=== PATIENT | female | born 1945 | race Caucasian/White ===

== ENCOUNTER 2025-04-16 07:16 | Inpatient (IN) | payer MEDICARE, OTHER, SELFPAY ==
[2025-04-14] VITALS (9 sets, daily range): BP systolic 143–172; BP diastolic 76–96; BMI 22.9; BMI 21.1
[2025-04-14 13:23] LABS: % Basophils 0.3 % (0-2); % Eosinophils 0.2 % (0-6); % Immature Granulocytes 0.2 % (0-0.5); % Lymphocytes 17.6 % (20.5-51.1); % Monocytes 7.4 % (1.7-9.3); % Neutrophils 74.3 % (42.2-75.2); Absolute Lymphocytes 1.6 10^3/uL (1.2-3.4); Absolute Monocytes 0.7 10^3/uL (0.1-0.6); Absolute Neutrophils 6.9 10^3/uL (1.4-6.5); Hematocrit 32.2 % (37.0-47.0); Mean Corp Hgb Conc. 31.1 g/dL (33.0-37.0); Mean Corpuscular Hgb 24.8 pg (27.0-31.0); Mean Corpuscular Volume 79.7 fL (81.0-99.0); Mean Platelet Volume 9.9 fL (7.4-10.4); Nucleated Red Blood Cells % 0 %; Platelet Count 325 10^3/uL (130-400); Red Blood Cell Count 4.04 10^6/uL (4.20-5.40); Red Cell Dist. Width 17.2 % (11.5-14.5); White Blood Cell Count 9.3 10^3/uL (4.8-10.8)
[2025-04-14 13:39] LABS: ALT (SGPT) 17 U/L (0-35); AST (SGOT) 18 U/L (14-36); Albumin 3.8 g/dl (3.5-5.0); Alkaline Phosphatase 81 U/L (38-126); Blood Urea Nitrogen 8 mg/dl (7-17); Calcium 9.8 mg/dl (8.4-10.2); Carbon Dioxide 26 mmol/L (22-30); Chloride 103 mmol/L (98-107); Glucose 119 mg/dl (70-99); Lipase 97 U/L (23-300); Potassium 3.6 mmol/L (3.5-5.1); Sodium 138 mmol/L (135-145); Total Bilirubin 0.6 mg/dl (0.2-1.3); Total Protein 7.2 g/dl (6.3-8.2); eGFR > 60.00
[2025-04-14 16:12] LABS: Urine Albumin 2+ (Neg - Trace); Urine Bilirubin Negative (Negative); Urine Character Clear (Clear); Urine Color Yellow; Urine Glucose Negative (Negative); Urine Ketone 1+ (Negative); Urine Leukocyte Negative (Negative); Urine Nitrite Negative (Negative); Urine Occult Blood 3+ (Negative); Urine Urobilinogen Negative (Neg - 1+); Urine pH 6.5 (5.0-9.0)
[2025-04-14] MEDS: NSS 500 IV (16:37)
[2025-04-14] MEDS: TORADOL 15 MG IV (16:38)
[2025-04-14 16:44] LABS: Urine Bacteria Few (Negative); Urine Granular Cast 0-2 /LPF (0); Urine Hyaline Cast 0-2 /LPF (0-2)
[2025-04-14] MEDS: OMNIPAQUE 50 ML PO (17:42)
--- NOTE | 2025-04-14 18:33 | ED.GENMED ---
History of Present Illness
<Billy Phillips MD - Last Filed: 04/14/25 18:36>
General
Chief Complaint: Fatigue
Source: patient and family
Exam Limitations: none
Time Seen by Provider: 04/14/25 14:25
Nursing documentation reviewed up to this point in time: agreed with
History of Present Illness
History of Present Illness:
Patient presents to ED secondary to worsening abdominal pain and back pain over the past 3 months. Denies fever or chills. Denies vomiting or diarrhea. Patient has had significant decreased appetite with weight loss. Patient has been evaluated
multiple times by her primary care physician. Patient has had CT scan that showed possible kidney stone, and has been seen by urologist. Recently, secondary to continued pain, patient went on the lithotripsy, without improving symptoms. Patient
was seen by her urologist who informed her that he does not believe that her pain is secondary to kidney stones. Recommended GI follow-up as an outpatient. However, when she attempted to make an appointment to see a GI physician, earliest
appointment was in July.
Review of Systems
<Billy Phillips MD - Last Filed: 04/14/25 18:36>
Review of Systems
Allergies reviewed?: Yes
All Other Systems: ROS reviewed and negative except as documented in HPI and ROS
Constitutional: Reports no symptoms; Denies fever
Respiratory: Reports no symptoms
Cardiac: Reports no symptoms
ABD/GI: Reports abdominal pain and nausea
Musculoskeletal: Reports no symptoms
Skin: Reports no symptoms
Neurological: Reports no symptoms
Phy Exam
<Billy Phillips MD - Last Filed: 04/14/25 18:36>
Physical Exam
Physical Exam:
Physical Exam
General: no apparent distress, not acutely ill. afebrile
Head: nc/at. eomi
Neck: supple. normal range of motion.
Heart: s1/s2 regular rate and rhythm
Lungs: no acute respiratory distress. clear bilaterally
Abdomen: normal bowel sounds. mild lower abdominal tenderness to palpation. no distention
Neuro: alert and oriented x 3. no focal neurological deficits
Skin: no rash
Psychiatric: well kept. interactive and cooperative
Extremities: no edema. no calf tenderness.
Course
<Billy Phillips MD - Last Filed: 04/14/25 18:36>
Orders/Labs/Results
Orders:
Orders
04/14/25 13:11
Complete Blood Count/With Diff Urgent
Comprehensive Metabolic Panel Urgent
Lipase Urgent
04/14/25 15:40
Urinalysis Reflex To Culture Urgent
Date Specimen was Collected: 04/14/25
Time Specimen was Collected: 15:35
Urine Microscopic Reflex Cult Urgent
04/14/25 16:09
0.9% Sodium Chloride 500 ml [Nss] 500 ml IV BOLUS
Ketorolac [Toradol] 15 mg IV NOW STA
Pantoprazole [Protonix IV] 40 mg IV NOW STA
04/14/25 17:16
CT Abd/pel W Iv And Oral Contr Urgent
Comment:
Reason For Exam: abdominal pain
Iohexol [Omnipaque] See Protocol PO NOW STA
Abnormal Lab Results
04/14/25 04/14/25
13:11 15:40
RBC 4.04 L 10^6/uL
(4.20-5.40)
Hgb 10.0 L g/dL
(12.0-16.0)
Hct 32.2 L %
(37.0-47.0)
MCV 79.7 L fL
(81.0-99.0)
MCH 24.8 L pg
(27.0-31.0)
MCHC 31.1 L g/dL
(33.0-37.0)
RDW 17.2 H %
(11.5-14.5)
Absolute Neuts (auto) 6.9 H 10^3/uL
(1.4-6.5)
Absolute Monos (auto) 0.7 H 10^3/uL
(0.1-0.6)
Lymphocytes % 17.6 L %
(20.5-51.1)
Creatinine 0.5 L mg/dL
(0.6-1.0)
Glucose 119 H mg/dl
(70-99)
Urine Ketones 1+ A
(Negative)
Ur Occult Blood Reflex 3+ A
(Negative)
Urine RBC 11-15 A /HPF
(0-2)
Urine Bacteria (Reflex) Few A
(Negative)
Urine Albumin (Reflex) 2+ A
(Neg - Trace)
04/14/25 13:11
04/14/25 13:11
Vital Signs
Initial and Last Documented VS:
Initial Vital Signs
Temp Pulse Resp BP Pulse Ox
97.9 F 92 20 153/89 99
04/14/25 12:55 04/14/25 12:55 04/14/25 12:55 04/14/25 12:55 04/14/25 12:55
Last Documented Vital Signs
Temp Pulse Resp BP Pulse Ox
98.0 F 93 17 172/95 100
04/14/25 19:54 04/14/25 19:30 04/14/25 19:30 04/14/25 19:00 04/14/25 19:30
<Terrance Hernandez, DO - Last Filed: 04/14/25 21:04>
Orders/Labs/Results
Orders:
Orders
04/14/25 13:11
Complete Blood Count/With Diff Urgent
Comprehensive Metabolic Panel Urgent
Lipase Urgent
04/14/25 15:40
Urinalysis Reflex To Culture Urgent
Date Specimen was Collected: 04/14/25
Time Specimen was Collected: 15:35
Urine Microscopic Reflex Cult Urgent
04/14/25 16:09
0.9% Sodium Chloride 500 ml [Nss] 500 ml IV BOLUS
Ketorolac [Toradol] 15 mg IV NOW STA
Pantoprazole [Protonix IV] 40 mg IV NOW STA
04/14/25 17:16
CT Abd/pel W Iv And Oral Contr Urgent
Comment:
Reason For Exam: abdominal pain
Iohexol [Omnipaque] See Protocol PO NOW STA
Abnormal Lab Results
04/14/25 04/14/25
13:11 15:40
RBC 4.04 L 10^6/uL
(4.20-5.40)
Hgb 10.0 L g/dL
(12.0-16.0)
Hct 32.2 L %
(37.0-47.0)
MCV 79.7 L fL
(81.0-99.0)
MCH 24.8 L pg
(27.0-31.0)
MCHC 31.1 L g/dL
(33.0-37.0)
RDW 17.2 H %
(11.5-14.5)
Absolute Neuts (auto) 6.9 H 10^3/uL
(1.4-6.5)
Absolute Monos (auto) 0.7 H 10^3/uL
(0.1-0.6)
Lymphocytes % 17.6 L %
(20.5-51.1)
Creatinine 0.5 L mg/dL
(0.6-1.0)
Glucose 119 H mg/dl
(70-99)
Urine Ketones 1+ A
(Negative)
Ur Occult Blood Reflex 3+ A
(Negative)
Urine RBC 11-15 A /HPF
(0-2)
Urine Bacteria (Reflex) Few A
(Negative)
Urine Albumin (Reflex) 2+ A
(Neg - Trace)
04/14/25 13:11
04/14/25 13:11
Vital Signs
Initial and Last Documented VS:
Initial Vital Signs
Temp Pulse Resp BP Pulse Ox
97.9 F 92 20 153/89 99
04/14/25 12:55 04/14/25 12:55 04/14/25 12:55 04/14/25 12:55 04/14/25 12:55
Last Documented Vital Signs
Temp Pulse Resp BP Pulse Ox
98.0 F 93 17 172/95 100
04/14/25 19:54 04/14/25 19:30 04/14/25 19:30 04/14/25 19:00 04/14/25 19:30
<Terrance Hernandez DO - Last Filed: 04/14/25 21:04>
*Critical Care Note
Total Time (30-74mins, 75-104mins- exclusive of procedures): Not Applicable
<Terrance Hernandez DO - Last Filed: 04/14/25 21:04>
Update Note
Update Note:
9 PM care of patient was transitioned earlier pending CT. Patient has been having abdominal pain and back pain and weight loss. She is having trouble eating. CT shows concern for thoracic discitis and possibly osteomyelitis. Will admit for
further evaluation and workup
ED Attending Note
<Billy Phillips MD - Last Filed: 04/14/25 18:36>
-
Portions of this chart may have been created with voice recognition software.� Occasional wrong word or��sound alike� substitutions may have occurred due to the inherent limitations of voice recognition software.
Discharge Plan
Departure
Patient Disposition: Admit
Date of Disposition: 04/14/25
Time of Disposition: 21:03
Admit to: Med/Surg
Presentation/result/management discussed w/ accepting MD/DO: Hospitalist
Discharge Problem:
Back pain, Recent weight loss
Prescriptions:
No Action
losartan 50 mg Tablet
50 mg PO DAILY
metoprolol succinate [Toprol XL] 25 mg Tablet Extended Release 24 Hr
25 mg PO DAILY
rosuvastatin [Crestor] 20 mg Tablet
20 mg PO QPM
acetaminophen [Tylenol] 325 mg Tablet
650 mg PO Q6HPRN PRN (Reason: mild pain)
aspirin 81 mg Tablet,Delayed Release (Dr/Ec)
81 mg PO QPM
Referrals:
Harinder Kee MD [Family Provider] -
Interventions
Interventions:
*Risk Screen - Suicide Last Done: 04/14/25 12:55
*General Assessment Last Done: 04/14/25 12:55
*Neglect/Abuse Screening Last Done: 04/14/25 12:55
*ED- Fall Risk Assessment Last Done: 04/14/25 14:34
*ED COVID-19 Vaccine History Last Done: 04/14/25 14:34
Discharge Date and Time
Print Language: ARGENTINE
--- NOTE | 2025-04-14 21:25 | HPS.HSE ---
Family Physician
-
Family Physician: Harinder Kee
Chief Complaint
-
Abdominal pain and back pain
History of Present Illness
This is a 80-year-old female who has past medical history significant for hypertension and hyperlipidemia presenting to the emergency department with 3-month history of abdominal pain and back pain.
Patient reports progressive onset of symptoms over the last 3 months with significantly decreased appetite and weight loss. She denies nausea vomiting or diarrhea. She denies abdominal distention. She denies black stools. She denies any
hematochezia. She denies any urinary symptoms. She has not had any night sweats and denies any recent travels or sick contacts.
She had been admitted at [facility] several weeks ago with urinary tract infection given antibiotics which she poorly tolerated. She and since then she is continue to have abdominal and back pain.
Patient was seen by urologist for kidney stones and underwent lithotripsy without improvement in symptoms. The urologist explained this to the patient that he does not believe that pain is secondary to kidney stones. She has not been followed by
GI as an outpatient yet. She has been seen by hematology and is pending GI evaluation for continued poor appetite and weight loss.
Patient denies any food fear or pain with attempted eating. She denies dysphagia or odynophagia dyspepsia, melena or hematochezia. No recent colonoscopy.
In the emergency department she was afebrile, blood pressure 170/70 pulse rate of 90 and she was satting 98% on room air.
Electrolyte BUN/creatinine were within normal limits. CBC was unremarkable.
CT of the abdomen pelvis showing severe disc space narrowing and osseous irregularity/destructive changes centered at T11-T12. Paravertebral inflammatory soft tissue also noted at T11-T12. CT findings may be secondary to the sequela of a severe
neuropathic arthrosis versus discitis-osteomyelitis. 0.8 cm lytic lesion in the posterior T11 vertebral body of uncertain etiology.
Medical History
Past Medical History
Past Medical History: Reports HTN, Hypercholesterolemia and Other (Nephrolithiasis)
Additional Past Medical History:
Hypertension
Hyperlipidemia
Past Surgical History: Reports Other
Social History
Tobacco: Non-smoker
Alcohol: None
Drug: None
Family History
Family History: Not pertinent
Allergies / Home Medications
Allergies reflects when Allergies were last updated in [facility].
Home Medications with original date entered in [facility]
Allergy/Medication List:
Allergies
Allergy/AdvReac Type Severity Reaction Status Date / Time
No Known Allergies Allergy Verified 04/14/25 12:59
Home Medications
acetaminophen 325 mg tablet (Tylenol) 650 mg PO Q6HPRN PRN mild pain 04/14/25
aspirin 81 mg tablet,delayed release 81 mg PO QPM 04/14/25
losartan 50 mg tablet 50 mg PO DAILY 04/14/25
metoprolol succinate 25 mg tablet,extended release 24 hr (Toprol XL) 25 mg PO DAILY 04/14/25
rosuvastatin 20 mg tablet (Crestor) 20 mg PO QPM 04/14/25
Review of Systems
-
Constitutional: Reports Weight Loss
EENT: Reports No Symptoms
Respiratory: Reports No Symptoms
Cardiac: Reports No Symptoms
Abdomen/GI: Reports Abdominal Pain
: Reports No Symptoms
Musculoskeletal: Reports No Symptoms
Skin: Reports No Symptoms
Neurological: Reports No Symptoms
Endocrine: Reports No Symptoms
Hematologic/Lymphatic: Reports No Symptoms
Psych: Reports No Symptoms
Physical Exam
Vital Signs
Vital Signs
Temp Pulse Resp BP Pulse Ox
98.0 F 93 17 172/95 100
04/14/25 19:54 04/14/25 19:30 04/14/25 19:30 04/14/25 19:00 04/14/25 19:30
Physical Exam
General: Well Developed, Well Nourished, No Apparent Distress and Poor Appetite
HEENT: NormoCephalic, Moist mucous membranes and Atraumatic
Respiratory: Clear
Cardiac: S1/S2 and Regular Rhythm; No Murmur or Rub
GI: Soft, Non Tender, Non Distended and Normal Bowel Sounds; No Organomegaly
Rectal: Deferred by Provider
Musculoskeletal: No Clubbing, No Cyanosis and No Edema
Skin: No Rash
Neuro: Nonfocal/grossly intact
Laboratory Results
-
04/14/25 13:11
04/14/25 13:11
Laboratory Results
Total Bilirubin 0.6 mg/dl (0.2-1.3) 04/14/25 13:11
AST 18 U/L (14-36) 04/14/25 13:11
ALT 17 U/L (0-35) 04/14/25 13:11
Alkaline Phosphatase 81 U/L (38-126) 04/14/25 13:11
Lipase 97 U/L (23-300) 04/14/25 13:11
Data Reviewed
-
CT Scan: Report Reviewed by me
Lab Data: Labs Reviewed by me
Old Records: Reviewed
Impression/Plan
-
IMPRESSION:
80-year-old with subacute back pain as well as abdominal pain and poor appetite. She has weight loss and suffering some failure to thrive. It appears that her low appetite and loss of weight is secondary to the back pain that has been persistent
for several weeks. She has no acute abdominal symptoms per se. She has no evidence of blood loss. She has no prior history of cancer but has no recent screening. Family came in for more GI evaluation but imaging shows an incidental finding of
irregularity and destructive changes of the vertebral bone centered around T11-T12 with paravertebral inflammatory soft tissue findings. There is no specific tenderness on examination. There is concern however for superolateral severe neuropathic
arthrosis versus discitis/osteomyelitis.
PLAN:
1. Back pain
- admit to med/surg observation
- possible disciitis/vertebral osteo, mri with mark in am
- check esr/crp
- pain control and antiemetics
- will get ID if confirmed osteo and obtain blood cultures and possible echo
2. GI/weightloss - no acute findings in the abdomen to explain a GI pathology
- pain control as above
- consider GI consultation if negative mri
- agree with outpatient gi f/u
continue antihypertensives
DVT PPx - heparin sq
Code Status - Full code
[2025-04-15] MEDS: NSS 1000 IV (00:15)
[2025-04-15] MEDS: HEPARIN 5000 UNITS SC ×3 (00:15→16:42)
[2025-04-15 07:16] LABS: % Basophils 0.6 % (0-2); % Eosinophils 1.5 % (0-6); % Immature Granulocytes 0.2 % (0-0.5); % Lymphocytes 25.6 % (20.5-51.1); % Neutrophils 62.1 % (42.2-75.2); Absolute Eosinophils 0.1 10^3/uL (0-0.7); Absolute Lymphocytes 1.4 10^3/uL (1.2-3.4); Absolute Monocytes 0.5 10^3/uL (0.1-0.6); Absolute Neutrophils 3.4 10^3/uL (1.4-6.5); Hematocrit 29.9 % (37.0-47.0); Hemoglobin 9.4 g/dL (12.0-16.0); Mean Corp Hgb Conc. 31.4 g/dL (33.0-37.0); Mean Corpuscular Hgb 24.8 pg (27.0-31.0); Mean Corpuscular Volume 78.9 fL (81.0-99.0); Mean Platelet Volume 9.8 fL (7.4-10.4); Nucleated Red Blood Cells % 0 %; Platelet Count 290 10^3/uL (130-400); Red Blood Cell Count 3.79 10^6/uL (4.20-5.40); Red Cell Dist. Width 17.2 % (11.5-14.5); White Blood Cell Count 5.4 10^3/uL (4.8-10.8)
--- NOTE | 2025-04-15 07:33 | PTCARENOTE ---
Patient arrived on unit approximately 2340 via stretcher from ED. Patient AAOX3, ambulate to bed with assist x1. Patient refuse any pain med stating pain is 'ok' when she is in bed, therefore tolerable. Skin assessment completed, med rec completed,
oriented to unit, call natarajan within reach.
[2025-04-15 07:34] VITALS: BP 162/92
[2025-04-15 08:02] LABS: Erythrocyte Sed Rate 81 mm/hour (0-20)
[2025-04-15] MEDS: COZAAR 50 MG PO (08:13)
[2025-04-15] MEDS: TOPROL XL 25 MG PO (08:14)
[2025-04-15 08:22] LABS: Blood Urea Nitrogen 8 mg/dl (7-17); Carbon Dioxide 26 mmol/L (22-30); Chloride 109 mmol/L (98-107); Estimated Creatinine Clearance 60 ml/min; Glucose 94 mg/dl (70-99); Iron 36 ug/dl (37-170); Potassium 3.3 mmol/L (3.5-5.1); Sodium 140 mmol/L (135-145); eGFR > 60.00
[2025-04-15 08:30] LABS: Percent Saturation 14 % (20-50); Total Iron Binding Capacity 248 ug/dl (265-497)
--- NOTE | 2025-04-15 08:39 | W.PN.HOSP.TC ---
Today's Communication/Plan
-
see PN
Assessment / Plan
Assessment / Plan
80yo F with PMHX of HTN, CAD, HLD, nephrolithasis s/p laser lythotripsy 2 weeks ago, came with c/o continued pain in the middle of her spine started appr 1 monht ago. Pain is significant especially when she is trying to get her clothes on. She
initially though that it was 2/2 kidney stone, but her recent lythoripsy did not bring ny relief. CT in ED showed changes in the thoracic sline
A/P:
#Severe disc space narrowing and osseous irregularity/destructive changes centered at T11-T12.
# 0.8 cm lytic lesion in the posterior T11 vertebral body of uncertain etiology.
Paravertebral inflammatory soft tissue also noted at T11-T12. CT findings may be secondary to the sequela of a severe neuropathic arthrosis versus discitis-osteomyelitis. As discussed with NeuroSx - advised Cx and hold off Abx until collected.
MRI thoracic
Bcx
IRAD for vertebral biopsy for Cx and lesion
#Weight loss with lack of appetite
since january [address] abd/pelvis without acute finsings
will need age-appropriate CA screening by PCP
complete w/u with chest XR
No abdominal or retroperitoneal lymphadenopathy.
4.4 cm simple appearing cystic lesion of the right adnexa.
#hypokalemia
Most likely 2/2 poor oral intake
encourage PO intake
replete and follow
check Mg
#Anemia, microcytis
check iron, TIBC, ferritin
#ASCVD
#HLD
#GERD
cont home meds
DVT ppx hep
Full code
I have spent at least 57min reviewing chart, test results, communication with consultants and providing direct patient care
Anticipated Discharge: > 48 hours
Subjective/Interval History
-
Date of Service: April 15, 2025
Objective Data
-
Labs:
Laboratory Results
04/15/25
06:31
WBC 5.4
Hgb 9.4 L
Hct 29.9 L
Plt Count 290
Sodium 140
Potassium 3.3 L
Chloride 109 H
Carbon Dioxide 26
BUN 8
Creatinine 0.4 L
Glucose 94
Calcium 9.0
Vital Signs:
Vital Signs
Temp Pulse Resp BP Pulse Ox
98 F 95 14 162/92 100
04/15/25 07:34 04/15/25 08:14 04/15/25 07:34 04/15/25 08:14 04/15/25 07:34
I&O
04/14/25 04/15/25 04/16/25
06:59 06:59 06:59
Intake Total 480 / 480 450 / 450
Balance 480 / 480 450 / 450
Review of Systems
-
History Source: Patient
All other systems: Reviewed and negative
Constitutional: Reports Weight Loss; Denies Fever
Musculoskeletal: Reports Other (mid-back pain)
Physical Exam
-
General: No Apparent Distress
HEENT: Normocephalic
Respiratory: Clear to Auscultation
Cardiac: Regular Rhythm
Musculoskeletal: Other (painful lump over thoracic spine)
Neuro: Awake, Alert, Oriented and AO x 3
Psych: Calm
[2025-04-15 08:41] LABS: TSH 1.63 uIU/ml (0.47-4.68)
[2025-04-15 09:00] LABS: Vitamin B12 520 pg/ml (239-931)
[2025-04-15] MEDS: KCL 40 MEQ PO (09:53)
[2025-04-15 10:21] LABS: Magnesium 2.1 mg/dl (1.6-2.3)
--- NOTE | 2025-04-15 12:50 | CM ---
Patient seen at bedside
IA completed
OBS status-GAMBOA Form explained & signed. In chart
DX: back pain
MR thoracic spine ordered
Patient lives with spouse on 1st floor apartment
PLOF: independent with walker
DME: Walker
Denies VN/Rehab
Denies insecurities
PCP: Harinder Kee
Pharmacy: [facility]
PLAN: Home, currently no needs, when stable, CM continue to follow
[2025-04-15] MEDS: TYLENOL 650 MG PO ×2 (15:42→21:56)
[2025-04-15 15:53] VITALS: BP 125/79
--- NOTE | 2025-04-15 16:03 | DOWNTIME ---
There was a [email or web address] Downtime on 04/15/2025 from 1230 to 04/15/2025 at 1550. Downtime documentation of patient's care, including medication administrations, has been reconciled in the electronic record per guidelines. Refer to the
patient's paper chart under the miscellaneous tab to see printed paper medication records and downtime forms.
[2025-04-15 16:06] VITALS: BMI 21.1
[2025-04-15] MEDS: ASPIR LOW (ENTERIC COATED) 81 MG PO (16:42)
[2025-04-15] MEDS: CRESTOR 20 MG PO (16:42)
--- NOTE | 2025-04-15 20:21 | CON.NS ---
Consultation
-
Date/Time Consultation Performed: 04/15/2025; 15:00
Performing Provider: Trinidad
Chief Complaint
History of Present Illness
This is a 80-year-old female who presents last evening with 3 month hx of back pain and abdominal pain. Denies any trauma prior to start of back pain. She was brought in for loss of appetite and failure to thrive. Of note, she was admitted to [facility] approximately 3-4 weeks prior with urosepsis and was on antibiotics for approximately 2 weeks according to daughter, who provides additional hx by telephone.
Denies any fevers, or chills.
CT performed in the ED demonstrates lytic process at T11-12.
Patient denies any numbness, pain in legs. Daughter and patient reports she has been using walker but primarily due to back pain.
Denies any bowel and bladder changes.
Review of Systems
-
10 point ROS including constitutional, ENT, CV, Respiratory, GI, , neurological, hematological, endocrinological, musculoskeletal was negative except for as stated in HPI.
Medication and Allergies
Home Medications
Home Medications
�Medication �Instructions �Recorded
acetaminophen 325 mg tablet 650 mg PO Q6HPRN PRN mild pain 04/14/25
(Tylenol)
aspirin 81 mg tablet,delayed 81 mg PO QPM Blood Clot 04/14/25
release Prevention/Tx
losartan 50 mg tablet 50 mg PO DAILY Blood Pressure 04/14/25
metoprolol succinate 25 mg 25 mg PO DAILY Blood Pressure 04/14/25
tablet,extended release 24 hr
(Toprol XL)
rosuvastatin 20 mg tablet (Crestor) 20 mg PO QPM High Cholesterol 04/14/25
Allergies
Allergies
Allergy/AdvReac Type Severity Reaction Status Date / Time
No Known Allergies Allergy Verified 04/14/25 12:59
Physical Exam
-
Exam:
awake, alert, NAD
CN 2-12 grossly intact.
5/5 strength in bilateral arms and legs.
sensation to LT intact in arms and legs.
Head: NC/AT
neck supple
breathing nonlabored.
abdomen soft.
Cardiac: regular rate
Extremities: warm
CT: abdomen pelvis demonstrates lytic process at T11-12 involving intervening disc space, with focal kyphosis and retropulsion at this level.
Problems
-
Problem Status Onset Code
Recent weight loss Acute R63.4
Back pain Acute M54.9
Assessment / Plan
-
80 yo F with several month hx of back pain. REcent diagnosis and treatment of urosepsis. IMaging suspicious for osteomyelitis/discitis. Neuro intact. elevated CRP.
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
HOld abx until cultures obtained.
IR consult for possible bx of area.
TLSO brace when upright, weight bearing.
[2025-04-15 23:35] VITALS: BP 138/87
[2025-04-16] MEDS: HEPARIN 5000 UNITS SC ×4 (00:50→23:39)
[2025-04-16 06:43] LABS: % Basophils 0.8 % (0-2); % Eosinophils 2.1 % (0-6); % Immature Granulocytes 0.4 % (0-0.5); % Lymphocytes 27.9 % (20.5-51.1); % Monocytes 8.2 % (1.7-9.3); % Neutrophils 60.6 % (42.2-75.2); Absolute Eosinophils 0.1 10^3/uL (0-0.7); Absolute Lymphocytes 1.5 10^3/uL (1.2-3.4); Absolute Monocytes 0.4 10^3/uL (0.1-0.6); Absolute Neutrophils 3.2 10^3/uL (1.4-6.5); Hematocrit 31.1 % (37.0-47.0); Hemoglobin 9.6 g/dL (12.0-16.0); Mean Corp Hgb Conc. 30.9 g/dL (33.0-37.0); Mean Corpuscular Hgb 24.6 pg (27.0-31.0); Mean Corpuscular Volume 79.5 fL (81.0-99.0); Mean Platelet Volume 9.6 fL (7.4-10.4); Nucleated Red Blood Cells % 0 %; Platelet Count 286 10^3/uL (130-400); Red Blood Cell Count 3.91 10^6/uL (4.20-5.40); Red Cell Dist. Width 17.4 % (11.5-14.5); White Blood Cell Count 5.2 10^3/uL (4.8-10.8)
[2025-04-16 07:07] LABS: ALT (SGPT) 15 U/L (0-35); AST (SGOT) 16 U/L (14-36); Albumin 3.2 g/dl (3.5-5.0); Alkaline Phosphatase 64 U/L (38-126); Blood Urea Nitrogen 11 mg/dl (7-17); Calcium 9.3 mg/dl (8.4-10.2); Carbon Dioxide 29 mmol/L (22-30); Chloride 108 mmol/L (98-107); Estimated Creatinine Clearance 60 ml/min; Glucose 107 mg/dl (70-99); Magnesium 2.1 mg/dl (1.6-2.3); Potassium 3.6 mmol/L (3.5-5.1); Sodium 140 mmol/L (135-145); Total Bilirubin 0.4 mg/dl (0.2-1.3); Total Protein 6.2 g/dl (6.3-8.2); eGFR > 60.00
[2025-04-16 07:34] VITALS: BP 146/83
[2025-04-16] MEDS: TYLENOL 650 MG PO ×2 (10:00→16:29)
[2025-04-16] MEDS: COZAAR 50 MG PO (10:01)
[2025-04-16] MEDS: TOPROL XL 25 MG PO (10:01)
--- NOTE | 2025-04-16 11:01 | CON.ID ---
Consultation
-
Date/Time Consultation Requested: April 16, 2025 0900
Date/Time Consultation Performed: April 16, 2025 1100
Requesting Provider: Dr. Dl Presley
Performing Provider: Dr. Sandra Morris
Reason for Consultation: Vertebral osteomyelitis
Chief Complaint / Past History
Chief Complaint
Back pain, poor appetite
History of Present Illness
80-year-old female with history of hypertension, nephrolithiasis, kyphosis who presented to the hospital on April 14 due to worsening mid back pain. Patient states that she started feeling unwell approximately in December with progressive poor
appetite, weight loss, and weakness. No fevers or chills. She then developed left lower quadrant abdominal pain and she was admitted to [facility] on January 21, 2025. She states you she was diagnosed with a UTI which was treated with an
antibiotic she cannot remember. She continued to have the left lower quadrant abdominal pain. She was readmitted to [facility] on February 01 for bacteremia. She reports CT of the abdomen pelvis was unremarkable. She was in the hospital
for 5 days receiving IV antibiotic then discharged on 10-day course of oral antibiotic. Again she does not know what bacteria was in her blood or the antibiotic she was treated with. The left lower quad abdominal pain then moved to her back on the
left side. She saw the urologist who performed lithotripsy. However back pain persisted and got worse. She was told that her pain was not due to kidney stones. She continued to feel poorly. She has difficulty walking. She therefore came to
[facility]. Blood cultures x 2 negative to date. MRI of the thoracic and lumbar spine showed T10-T12 discitis/osteomyelitis with phlegmon anterior epidural space. Sed rate 81, CRP 64. she is currently not on antibiotic. Denies trauma to
the back.
Past History
Additional Past Medical History:
Hypertension
HLD
Nephrolithiasis
Bladder lift 2021
Allergy History:
No Known Allergies Allergy (Verified 04/14/25 12:59)
Medications Reviewed: Yes
Current Antibiotics:
None
Social History
Tobacco: Non-Smoker
Alcohol: None
Drug: None
Personal:
Family History
Family History: Not Pertinent
Review of Systems
Review of Systems
General: Change in Appetite; Negative Fever or Chills
HEENT: Negative Sinus Problems or Pharyngitis
Cardiovascular: Negative Chest Pain or Dyspnea
Respiratory: Negative Dyspnea or Cough
Gasteroenterology: Negative Nausea, Vomiting or Diarrhea
Genital / Urological: Negative Dysuria
Endocrine: Weakness and Fatigue
Skin / Hair / Nails: Negative Rash
Neurological: Negative Dizziness
All systems: All other systems were reviewed and were negative
Vital Signs
Temp Pulse Resp BP Pulse Ox
98.1 F 84 16 146/83 100
04/16/25 07:34 04/16/25 10:01 04/16/25 07:34 04/16/25 10:01 04/16/25 07:34
Physical Exam
Physical Exam
Constitutional: Non-toxic
Head: Other (No frontal or max or sinus tenderness)
Eyes: No Conjunctival Hemorrhage and Sclera Anicteric
Cardiovascular: Regular Rate and S1/S2
Pulmonary: Clear
Gastrointestinal: Soft, Non Tender, Non Distended and Normal Bowel Sounds
Extremities: Negative Edema
Musculoskeletal: Spinal Tenderness (Lower thorax)
Neurological: AO x 3 and Normal Muscle Strength (all four extremities); Negative Meningeal Signs
Lab / Diagnostic Study Results
04/16/25 06:15
04/16/25 06:15
Abs Immat Gran (auto) 0.0 10^3/uL (0-0.05) 04/16/25 06:15
Absolute Neuts (auto) 3.2 10^3/uL (1.4-6.5) 04/16/25 06:15
Absolute Lymphs (auto) 1.5 10^3/uL (1.2-3.4) 04/16/25 06:15
Absolute Monos (auto) 0.4 10^3/uL (0.1-0.6) 04/16/25 06:15
Absolute Basos (auto) 0.0 10^3/uL (0-0.2) 04/16/25 06:15
Immature Gran % 0.4 % (0-0.5) 04/16/25 06:15
Neutrophils % 60.6 % (42.2-75.2) 04/16/25 06:15
Lymphocytes % 27.9 % (20.5-51.1) 04/16/25 06:15
Monocytes % 8.2 % (1.7-9.3) 04/16/25 06:15
Eosinophils % 2.1 % (0-6) 04/16/25 06:15
Basophils % 0.8 % (0-2) 04/16/25 06:15
ESR 81 mm/hour (0-20) H 04/15/25 06:31
C-Reactive Protein 64.10 mg/L (0.0-10.00) H 04/15/25 06:31
Ur Squamous Epith Cells 11-15 /LPF (Few) 04/14/25 15:40
Microbiology Results
Micro:
04/15/25 09:38 Blood Culture - Preliminary
Blood/Venous No Growth in 24 hours- Final report to follow
04/15/25 08:45 Blood Culture - Preliminary
Blood/Venous No Growth in 24 hours- Final report to follow
04/14/25 CT a/p: Severe disc space narrowing and osseous irregularity/destructive changes centered at T11-T12. Paravertebral inflammatory soft tissue also noted at T11-T12. CT findings may be secondary to the sequela of a severe neuropathic arthrosis
versus discitis-osteomyelitis. 0.8 cm lytic lesion in the posterior T11 vertebral body of uncertain etiology. No prior imaging of the spine is currently available for direct comparison.
04/16/25 CXR: Pulmonary emphysema. Clear lungs. Exaggerated kyphosis of thoracic spine. Evidence for compression fractures of what likely represent T10 and T11 vertebral bodies. Thoracic spine MRI has been performed the same day and provides more
detailed evaluation.
04/16/25 MRI thoracic spine: At T10-T11 there is discitis/osteomyelitis with associated mild loss of height and increased thoracic kyphosis. There is retropulsion and phlegmonous change in the anterior epidural space with associated high-grade spinal
canal and neuroforaminal narrowing. There is some questionable faint T2 hyperintense cord signal at the T10-T11 level which may represent developing myelopathy. Additionally there is inflammatory changes in the adjacent paraspinal soft tissues.
Assessment / Plan
# T10-T12 discitis/osteomyelitis, phlegmon anterior epidural space
# Elevated ESR/CRP
# Recent history of bacteremia 02/01/25 at outside hospital.
# Recent history of UTI 01/18/25 at outside hospital.
- Obtain outside hospitalization records from [place]
- Blood cx's x 2 neg to date
- Repeat another 2 sets blood cx.
- IR to aspirate fluid for culture.
- Hold antibiotic for now to increase biopsy yield.
Care Review
Plan reviewed with: Physician (Dr. Presley)
--- NOTE | 2025-04-16 12:05 | W.PN.HOSP.TC ---
Today's Communication/Plan
-
vertebral biopsy
Assessment / Plan
Assessment / Plan
80yo F with PMHX of HTN, CAD, HLD, nephrolithiasis s/p laser lithotripsy 2 weeks ago, came with c/o continued pain in the middle of her spine started appr 1 month ago. Pain is significant especially when she is trying to get her clothes on. She
initially though that it was 2/2 kidney stone, but her recent lithotripsy did not bring ny relief. CT in ED showed changes in the thoracic spine, MRI proved vertebral OM
Patient with Hx of UTI with bacteremia in [facility] 1 month ago
A/P:
#Severe disc space narrowing and osseous irregularity/destructive changes centered at T11-T12.
# 0.8 cm lytic lesion in the posterior T11 vertebral body of uncertain etiology.
Paravertebral inflammatory soft tissue also noted at T11-T12. CT findings may be secondary to the sequela of a severe neuropathic arthrosis versus discitis-osteomyelitis. As discussed with NeuroSx - advised Cx and hold off Abx until collected.
MRI thoracic: At T10-T11 there is discitis/osteomyelitis with associated mild loss of height and increased thoracic kyphosis. There is retropulsion and phlegmonous change in the anterior epidural space with associated high-grade spinal canal and
neuroforaminal narrowing. There is some questionable faint T2 hyperintense cord signal at the T10-T11 level which may represent developing myelopathy.
As discussed with neuroSx - patient with high risk for comlicated postOP recovery 2/2 poor nutrition status, lack of subq fat at the site where Sx to be done. Since at this point neuroSx did not see any focal neuro deficit - favoring Abx with
outpatient f/u, weight gain and possible eventual intervention for vertebral stabilization
BcxNTD
IRAD for vertebral biopsy for Cx and lesion under anasthesia
ID consult
#Weight loss with lack of appetite
since january [address] abd/pelvis without acute findings
will need age-appropriate CA screening by PCP
complete w/u with chest XR
No abdominal or retroperitoneal lymphadenopathy.
4.4 cm simple appearing cystic lesion of the right adnexa.
#hypokalemia
#hypomagnesemia
Most likely 2/2 poor oral intake
encourage PO intake
replete and follow
#Anemia aof chronic disease
follow CBC
#ASCVD
#HLD
#GERD
cont home meds
DVT ppx hep
Full code
I have spent at least 57min reviewing chart, test results, communication with consultants and providing direct patient care
Anticipated Discharge: > 48 hours
Subjective/Interval History
-
Date of Service: April 16, 2025
Objective Data
-
Labs:
Laboratory Results
04/16/25
06:15
WBC 5.2
Hgb 9.6 L
Hct 31.1 L
Plt Count 286
Sodium 140
Potassium 3.6
Chloride 108 H
Carbon Dioxide 29
BUN 11
Creatinine 0.5 L
Glucose 107 H
Calcium 9.3
Total Bilirubin 0.4
AST 16
ALT 15
Alkaline Phosphatase 64
Vital Signs:
Vital Signs
Temp Pulse Resp BP Pulse Ox
98.1 F 84 16 146/83 100
04/16/25 07:34 04/16/25 10:01 04/16/25 07:34 04/16/25 10:01 04/16/25 07:34
I&O
04/15/25 04/16/25 04/17/25
06:59 06:59 06:59
Intake Total 480 / 480 2205 / 2205
Balance 480 / 480 2205 / 2205
Review of Systems
-
History Source: Patient
All other systems: Reviewed and negative
Physical Exam
-
General: No Apparent Distress and Comfortable
HEENT: Normocephalic
Respiratory: Clear to Auscultation
GI: Soft, Nontender and Nondistended
Musculoskeletal: No Clubbing, No Cyanosis and No Edema
Neuro: Awake, Alert, Oriented and AO x 3
Psych: Calm
--- NOTE | 2025-04-16 12:46 | W.PN.UPDATE ---
Update Note
Progress Note Update
- IR consulted for biopsy of T11-12 suspected discitis/osteomyelitis. Small amount of fluid within the disc space on the MR with no significant/accessible paravertebral component
- Will require transpedicular bone biopsy and will need anesthesia assistance. Uncertain when they will be available to help us.
--- NOTE | 2025-04-16 12:51 | CM ---
Chart reviewed and patient switched to inpatient , IMM given, signed and placed on chart, plan is for patient to return to home when stable.
Plan; Home no needs when stable.
[2025-04-16 15:04] VITALS: BP 137/73
[2025-04-16] MEDS: CRESTOR 20 MG PO (16:27)
[2025-04-16] MEDS: ASPIR LOW (ENTERIC COATED) 81 MG PO (16:27)
[2025-04-16 23:11] VITALS: BP 136/81
[2025-04-17] VITALS (13 sets, daily range): BP systolic 80–167; BP diastolic 66–95
[2025-04-17 06:02] LABS: % Basophils 0.7 % (0-2); % Eosinophils 1.9 % (0-6); % Immature Granulocytes 0.2 % (0-0.5); % Lymphocytes 37.9 % (20.5-51.1); % Monocytes 6.7 % (1.7-9.3); % Neutrophils 52.6 % (42.2-75.2); Absolute Eosinophils 0.1 10^3/uL (0-0.7); Absolute Lymphocytes 1.6 10^3/uL (1.2-3.4); Absolute Monocytes 0.3 10^3/uL (0.1-0.6); Absolute Neutrophils 2.3 10^3/uL (1.4-6.5); Hematocrit 29.9 % (37.0-47.0); Hemoglobin 9.5 g/dL (12.0-16.0); Mean Corp Hgb Conc. 31.8 g/dL (33.0-37.0); Mean Corpuscular Volume 78.7 fL (81.0-99.0); Mean Platelet Volume 9.5 fL (7.4-10.4); Nucleated Red Blood Cells % 0 %; Platelet Count 287 10^3/uL (130-400); Red Cell Dist. Width 17.4 % (11.5-14.5); White Blood Cell Count 4.3 10^3/uL (4.8-10.8)
--- NOTE | 2025-04-17 07:22 | W.PN.UPDATE ---
Update Note
Progress Note Update
MRI reviewed and findings discussed with hospital medicine.
IMaging most consistent with osteomyelitis,discitis.
Patient with no focal neurological deficits on my exam.
Recent admission and treatment for reported urosepsis.
REcommend optimizing nutritional status.
TLSO brace with weightbearing.
Close neurological monitoring.
IR biopsy of area for culture.
ABx per ID.
Follow up in office in 4 weeks with repeat ESR/CRP, MRI thoracic with and without real estate administrative assistant.
If new neurological symptoms/deficits, call back neurosurgery.
[2025-04-17] MEDS: TOPROL XL 25 MG PO (07:53)
[2025-04-17] MEDS: COZAAR 50 MG PO (07:54)
[2025-04-17] MEDS: HEPARIN 5000 UNITS SC ×3 (07:54→23:33)
[2025-04-17 08:52] LABS: INR 0.89; PT 12.3 Sec (11.4-14.6)
--- NOTE | 2025-04-17 08:57 | PN.CDI ---
CDI
- -
CDI:
Physician Documentation Request
Admit Date: 04/16/25 07:16
Dear Doctor Fernandez,
Clinical Indicators:
Patient admitted with back pain.
04/15 PN, 'Weight loss with lack of appetite'
04/15 RD note/assessment, 'With weight loss of > 10% in 6 months and < 75% estimated needs > 1 month pt meets AND/ASPEN criteria for moderate protein calorie malnutrition.'
Based on the above information and your assessment, which of the following most accurately represents the patient's nutritional status?
Moderate Protein Calorie Malnutrition
Other (please specify)
[place] Criteria ([facility] Hospitalist 2017)
2 or more criteria must be present for either
non severe or severe malnutrition
Note that the criteria differs related to the
presence of an acute or chronic illness
Acute Illness Chronic Illness
Energy Intake Non Severe: <75% for >7 days Non Severe: <75% for >1 month
Severe: <50% for >5 days Severe: <75% for >1 month
Weight Loss Non Severe: 1-2% over 1 week Non Severe: 5% over 1 month
5% over 1 month 7.5% over 3 months
7.5% over 3 months 10% over 6 months
1 year N/A 20% over 1 year
Severe: >2% over 1 week Severe: >5% over 1 month
>5% over 1 month >7.5% over 3 months
>7.5% over 3 months >10% over 6 months
1 year N/A >20% over 1 year
Body Fat Non Severe: Mild Decrease Non Severe: Mild Loss
Severe: Moderate Decrease Severe: Severe Loss
Muscle Mass Non Severe: Mild Decrease Non Severe: Mild Loss
Severe: Moderate Decrease Severe: Severe Loss
Fluid Accumulation Non Severe: Mild Accumulation Non Severe: Mild Accumulation
Severe: Moderate to severe Severe: Moderate to severe
accumulation accumulation
Reduced Ems Director Strength Non Severe: N/A Non Severe: N/A
Severe: Measurably reduced Severe: Measurably reduced
Additional criteria that can be used to Determine if Mild or Moderate Malnutrition (Merck Manual 2018)
Mild Moderate Severe
Albumin gm/dl <3.0 gm/dl <2.5 gm/dl <2.0 gm/dl
Pre Albumin mg/dl <15 gm/dl <10 mg/dl <5.0 mg/dl
BMI <18.5 <17 <16
Use of terms such as suspected, likely, concern for, or probable (associated with a specific diagnosis that is being evaluated, monitored, or treated as if it exists) are acceptable and can be coded in the inpatient setting, when documented at the
time of discharge.
Thank you,
MATT Lee RN
CDI Specialist
available via tiger text
Please use your independent medical judgment in providing your response.
[2025-04-17] MEDS: TYLENOL 650 MG PO ×2 (09:11→19:27)
--- NOTE | 2025-04-17 11:23 | W.PN.ID1 ---
Date of Service
Date of Service: April 17, 2025
Today's Communication
Await biopsy.
Assessment / Plan
# T10-T12 discitis/osteomyelitis, phlegmon anterior epidural space
# Elevated ESR/CRP
# Recent history of E. coli bacteremia (S cefazolin, T/sulfa, FQ) 02/01/25 at outside hospital. UA negative.
.02/01/25 CT a/p: no hydronephrosis, few punctate nonobstructing calculi; stable 4.8 cm unilocular cyst right adnexa
. I reviewed [facility]'s records
# Recent history of UTI 01/21/25 at outside hospital.
. UA small LE, 20-29 WBC; Ucx E. coli (pansensitive amox/xlav, cefazolin, nitrofurantoin, T/sulfa). no bcx.
. 01/21/25 CT a/p: no acute pathology
. I reviewed [facility]'s records
- Blood cx's x 2 neg to date
- Repeat 2 sets blood cx pending
- IR to aspirate fluid for culture.
- Hold antibiotic for now to increase biopsy yield.
Chief Complaint
-: Other (vertebral osteo)
Subjective / Review of Systems
Back pain stable.
Vital Signs / Physical Exam
Vital Signs
Vital Signs
Temp Pulse Resp BP Pulse Ox
98.2 F 82 16 147/88 98
04/17/25 07:24 04/17/25 07:53 04/17/25 07:24 04/17/25 07:53 04/17/25 07:24
Physical Exam
Constitutional: No Acute Distress
Cardiovascular: Regular Rate and Irregular Rate
Pulmonary: Clear
Gastrointestinal: Soft, Non Tender and Non Distended
Musculoskeletal: Spinal Tenderness (lower thorax)
Neurological: AO x 3
Objective Data
Lab Data
Lab Results
04/17/25 05:50
04/16/25 06:15
ESR 81 mm/hour (0-20) H 04/15/25 06:31
PT 12.3 Sec (11.4-14.6) 04/17/25 08:18
INR 0.89 04/17/25 08:18
Estimated Creat Clear 60 ml/min 04/16/25 06:15
Total Bilirubin 0.4 mg/dl (0.2-1.3) 04/16/25 06:15
AST 16 U/L (14-36) 04/16/25 06:15
ALT 15 U/L (0-35) 04/16/25 06:15
Alkaline Phosphatase 64 U/L (38-126) 04/16/25 06:15
C-Reactive Protein 64.10 mg/L (0.0-10.00) H 04/15/25 06:31
Most recent labs reviewed.
Micro Results:
04/15/25 09:38 Blood Culture - Preliminary
Blood/Venous No Growth in 48 hours- Final report to follow
04/15/25 08:45 Blood Culture - Preliminary
Blood/Venous No Growth in 48 hours- Final report to follow
04/16/25 15:15 Blood Culture - Pending
Blood/Venous
04/16/25 14:29 Blood Culture - Pending
Blood/Venous
04/14/25 CT a/p: Severe disc space narrowing and osseous irregularity/destructive changes centered at T11-T12. Paravertebral inflammatory soft tissue also noted at T11-T12. CT findings may be secondary to the sequela of a severe neuropathic arthrosis
versus discitis-osteomyelitis. 0.8 cm lytic lesion in the posterior T11 vertebral body of uncertain etiology. No prior imaging of the spine is currently available for direct comparison.
04/16/25 CXR: Pulmonary emphysema. Clear lungs. Exaggerated kyphosis of thoracic spine. Evidence for compression fractures of what likely represent T10 and T11 vertebral bodies. Thoracic spine MRI has been performed the same day and provides more
detailed evaluation.
04/16/25 MRI thoracic spine: At T10-T11 there is discitis/osteomyelitis with associated mild loss of height and increased thoracic kyphosis. There is retropulsion and phlegmonous change in the anterior epidural space with associated high-grade spinal
canal and neuroforaminal narrowing. There is some questionable faint T2 hyperintense cord signal at the T10-T11 level which may represent developing myelopathy. Additionally there is inflammatory changes in the adjacent paraspinal soft tissues.
--- NOTE | 2025-04-17 11:25 | W.PN.HOSP.TC ---
Today's Communication/Plan
-
pending disk and/or vertebral biopsy
Assessment / Plan
Assessment / Plan
80yo F with PMHX of HTN, CAD, HLD, nephrolithiasis s/p laser lithotripsy 2 weeks ago, came with c/o continued pain in the middle of her spine started appr 1 month ago. Pain is significant especially when she is trying to get her clothes on. She
initially though that it was 2/2 kidney stone, but her recent lithotripsy did not bring ny relief. CT in ED showed changes in the thoracic spine, MRI proved vertebral OM
Patient with Hx of UTI with bacteremia in [facility] 1 month ago
A/P:
#Severe disc space narrowing and osseous irregularity/destructive changes centered at T11-T12.
# 0.8 cm lytic lesion in the posterior T11 vertebral body of uncertain etiology.
Paravertebral inflammatory soft tissue also noted at T11-T12. CT findings may be secondary to the sequela of a severe neuropathic arthrosis versus discitis-osteomyelitis. As discussed with NeuroSx - advised Cx and hold off Abx until collected.
MRI thoracic: At T10-T11 there is discitis/osteomyelitis with associated mild loss of height and increased thoracic kyphosis. There is retropulsion and phlegmonous change in the anterior epidural space with associated high-grade spinal canal and
neuroforaminal narrowing. There is some questionable faint T2 hyperintense cord signal at the T10-T11 level which may represent developing myelopathy.
As discussed with neuroSx - patient with high risk for comlicated postOP recovery 2/2 poor nutrition status, lack of subq fat at the site where Sx to be done. Since at this point neuroSx did not see any focal neuro deficit - favoring Abx with
outpatient f/u, weight gain and possible eventual intervention for vertebral stabilization
BcxNTD
IRAD for vertebral biopsy for Cx and lesion under anasthesia
ID consult
#Weight loss with lack of appetite
since january [address] abd/pelvis without acute findings
will need age-appropriate CA screening by PCP
complete w/u with chest XR
No abdominal or retroperitoneal lymphadenopathy.
4.4 cm simple appearing cystic lesion of the right adnexa.
#hypokalemia
#hypomagnesemia
Most likely 2/2 poor oral intake
encourage PO intake
replete and follow
#Anemia aof chronic disease
follow CBC
#ASCVD
#HLD
#GERD
cont home meds
DVT ppx hep
Full code
I have spent at least 57min reviewing chart, test results, communication with consultants and providing direct patient care
Anticipated Discharge: > 48 hours
Subjective/Interval History
-
Date of Service: April 17, 2025
Objective Data
-
Labs:
Laboratory Results
04/17/25 04/17/25
05:50 08:18
WBC 4.3 L
Hgb 9.5 L
Hct 29.9 L
Plt Count 287
PT 12.3
INR 0.89
Vital Signs:
Vital Signs
Temp Pulse Resp BP Pulse Ox
98.2 F 82 16 147/88 98
04/17/25 07:24 04/17/25 07:53 04/17/25 07:24 04/17/25 07:53 04/17/25 07:24
I&O
04/16/25 04/17/25 04/18/25
06:59 06:59 06:59
Intake Total 2204 1240 / 1240
Balance 2204 1240 / 1240
Review of Systems
-
History Source: Patient
All other systems: Reviewed and negative
Constitutional: Denies Fever
Physical Exam
-
General: No Apparent Distress
HEENT: Normocephalic
Musculoskeletal: No Clubbing, No Cyanosis and No Edema
Neuro: Awake, Alert, Oriented, AO x 3, No Motor Deficits and No Sensory Deficits
Psych: Calm
--- NOTE | 2025-04-17 12:15 | PTCARENOTE ---
consent obtained by Dr Yanez using [employer] and full stack web developer #[id number]. Patient sts she understands.
--- NOTE | 2025-04-17 12:32 | PTCARENOTE ---
Spoken to by anesthesia using GLOBO shrinker #[id number]
--- NOTE | 2025-04-17 15:29 | CM ---
Patient seen at bedside with & neice
vertebral bx today-await results
PLAN: home when stable, CM following for needs
[2025-04-17] MEDS: CRESTOR 20 MG PO (17:20)
[2025-04-17] MEDS: ASPIR LOW (ENTERIC COATED) 81 MG PO (17:20)
[2025-04-17] MEDS: ANCEF 10 IV (22:39)
[2025-04-18 03:00] VITALS: BP 135/89
[2025-04-18] MEDS: ANCEF 10 IV ×3 (05:45→22:55)
[2025-04-18] MEDS: TYLENOL 650 MG PO ×2 (05:51→19:43)
[2025-04-18 06:53] LABS: % Basophils 0.5 % (0-2); % Immature Granulocytes 0.5 % (0-0.5); % Lymphocytes 23.8 % (20.5-51.1); % Monocytes 7.7 % (1.7-9.3); % Neutrophils 67.5 % (42.2-75.2); Absolute Lymphocytes 1.5 10^3/uL (1.2-3.4); Absolute Monocytes 0.5 10^3/uL (0.1-0.6); Absolute Neutrophils 4.2 10^3/uL (1.4-6.5); Hematocrit 29.9 % (37.0-47.0); Hemoglobin 9.5 g/dL (12.0-16.0); Mean Corp Hgb Conc. 31.8 g/dL (33.0-37.0); Mean Corpuscular Hgb 24.9 pg (27.0-31.0); Mean Corpuscular Volume 78.3 fL (81.0-99.0); Mean Platelet Volume 9.7 fL (7.4-10.4); Nucleated Red Blood Cells % 0 %; Platelet Count 278 10^3/uL (130-400); Red Blood Cell Count 3.82 10^6/uL (4.20-5.40); Red Cell Dist. Width 17.3 % (11.5-14.5); White Blood Cell Count 6.3 10^3/uL (4.8-10.8)
[2025-04-18 07:16] LABS: ALT (SGPT) 14 U/L (0-35); AST (SGOT) 17 U/L (14-36); Albumin 3.2 g/dl (3.5-5.0); Alkaline Phosphatase 61 U/L (38-126); Blood Urea Nitrogen 17 mg/dl (7-17); Calcium 9.2 mg/dl (8.4-10.2); Carbon Dioxide 26 mmol/L (22-30); Chloride 105 mmol/L (98-107); Estimated Creatinine Clearance 60 ml/min; Glucose 112 mg/dl (70-99); Potassium 3.9 mmol/L (3.5-5.1); Sodium 137 mmol/L (135-145); Total Bilirubin 0.3 mg/dl (0.2-1.3); eGFR > 60.00
[2025-04-18 07:47] VITALS: BP 140/84
[2025-04-18] MEDS: COZAAR 50 MG PO (08:16)
[2025-04-18] MEDS: HEPARIN 5000 UNITS SC ×3 (08:16→22:55)
[2025-04-18] MEDS: TOPROL XL 25 MG PO (08:16)
[2025-04-18 11:11] VITALS: BP 142/80
--- NOTE | 2025-04-18 12:46 | W.PN.HOSP.TC ---
Addendum entered and electronically signed by Dl Presley MD 04/18/25 13:35:
#moderate protein calorie malnutrition
Encourage PO intake
Original Note:
Today's Communication/Plan
-
on ancef now
Assessment / Plan
Assessment / Plan
80yo F with PMHX of HTN, CAD, HLD, nephrolithiasis s/p laser lithotripsy 2 weeks ago, came with c/o continued pain in the middle of her spine started appr 1 month ago. Pain is significant especially when she is trying to get her clothes on. She
initially though that it was 2/2 kidney stone, but her recent lithotripsy did not bring ny relief. CT in ED showed changes in the thoracic spine, MRI proved vertebral OM
Patient with Hx of UTI with E.coli bacteremia (cefalosporin sensitive) in [facility] 1 month ago
A/P:
#Severe disc space narrowing and osseous irregularity/destructive changes centered at T11-T12.
# 0.8 cm lytic lesion in the posterior T11 vertebral body of uncertain etiology.
Paravertebral inflammatory soft tissue also noted at T11-T12. CT findings may be secondary to the sequela of a severe neuropathic arthrosis versus discitis-osteomyelitis. As discussed with NeuroSx - advised Cx and hold off Abx until collected.
MRI thoracic: At T10-T11 there is discitis/osteomyelitis with associated mild loss of height and increased thoracic kyphosis. There is retropulsion and phlegmonous change in the anterior epidural space with associated high-grade spinal canal and
neuroforaminal narrowing. There is some questionable faint T2 hyperintense cord signal at the T10-T11 level which may represent developing myelopathy.
As discussed with neuroSx - patient with high risk for comlicated postOP recovery 2/2 poor nutrition status, lack of subq fat at the site where Sx to be done. Since at this point neuroSx did not see any focal neuro deficit - favoring Abx with
outpatient f/u, weight gain and possible eventual intervention for vertebral stabilization
BcxNTD
[facility] did vertebral biopsy for Cx and lesion under anaesthesia on 04/17/25 - pending
ID consult: started ancef as per previous bacteremia Cx - most liekly episode of UTI with bacteremia caused seeding of infection in the spine
#Weight loss with lack of appetite
since january [address] abd/pelvis without acute findings
will need age-appropriate CA screening by PCP
chest XR normal
No abdominal or retroperitoneal lymphadenopathy.
#4.4 cm simple appearing cystic lesion of the right adnexa.
no follow up advised
#hypokalemia
#hypomagnesemia
Most likely 2/2 poor oral intake
encourage PO intake
replete and follow
#Anemia of chronic disease
follow CBC
#ASCVD
#HLD
#GERD
cont home meds
DVT ppx hep
Full code
I have spent at least 37min reviewing chart, test results, communication with consultants and providing direct patient care
Anticipated Discharge: > 48 hours
Subjective/Interval History
-
Date of Service: April 18, 2025
Objective Data
-
Labs:
Laboratory Results
04/18/25
06:30
WBC 6.3
Hgb 9.5 L
Hct 29.9 L
Plt Count 278
Sodium 137
Potassium 3.9
Chloride 105
Carbon Dioxide 26
BUN 17
Creatinine 0.5 L
Glucose 112 H
Calcium 9.2
Total Bilirubin 0.3
AST 17
ALT 14
Alkaline Phosphatase 61
Vital Signs:
Vital Signs
Temp Pulse Resp BP Pulse Ox
98.9 F 89 16 142/80 98
04/18/25 11:11 04/18/25 11:11 04/18/25 11:11 04/18/25 11:11 04/18/25 11:11
I&O
04/17/25 04/18/25 04/19/25
06:59 06:59 06:59
Intake Total 1240 / 1240 740 / 740
Balance 1240 / 1240 740 / 740
Review of Systems
-
History Source: Patient
All other systems: Reviewed and negative
Neuro: Reports Other (mid back pain)
Physical Exam
-
General: No Apparent Distress
HEENT: Normocephalic
Respiratory: Clear to Auscultation
Neuro: Awake, Alert, Oriented, AO x 3 and No Motor Deficits
Psych: Calm
--- NOTE | 2025-04-18 13:26 | W.PN.ID1 ---
Date of Service
Date of Service: April 18, 2025
Today's Communication
Started empiric cefazolin while awaiting cx.
Assessment / Plan
# T10-T12 discitis/osteomyelitis, phlegmon anterior epidural space
# Elevated ESR/CRP
# Recent history of E. coli bacteremia (S cefazolin, T/sulfa, FQ) 02/01/25 at outside hospital. UA negative.
.02/01/25 CT a/p: no hydronephrosis, few punctate nonobstructing calculi; stable 4.8 cm unilocular cyst right adnexa
. I reviewed [facility]'s records
# Recent history of UTI 01/21/25 at outside hospital.
. UA small LE, 20-29 WBC; Ucx E. coli (pansensitive amox/xlav, cefazolin, nitrofurantoin, T/sulfa). no bcx.
. 01/21/25 CT a/p: no acute pathology
. I reviewed [facility]'s records
- Blood cx's x 2 neg to date (off abx)
- Repeat 2 sets blood cx pending
- 04/17/25 s/p IR biopsy (off abx)
Gram stain mod WBC, no org. CX no growth to date
Path pending
- Started empiric cefazolin 2g IV q8h.
Chief Complaint
-: Other (vertebral osteo)
Subjective / Review of Systems
Was able to ambulate without walker today.
Vital Signs / Physical Exam
Vital Signs
Vital Signs
Temp Pulse Resp BP Pulse Ox
98.9 F 89 16 142/80 98
04/18/25 11:11 04/18/25 11:11 04/18/25 11:11 04/18/25 11:11 04/18/25 11:11
Physical Exam
Constitutional: No Acute Distress
Cardiovascular: Regular Rate and S1/S2
Pulmonary: Clear
Gastrointestinal: Soft, Non Tender and Non Distended
Extremities: Negative Edema
Neurological: AO x 3
Objective Data
Lab Data
Lab Results
04/18/25 06:30
04/18/25 06:30
ESR 81 mm/hour (0-20) H 04/15/25 06:31
PT 12.3 Sec (11.4-14.6) 04/17/25 08:18
INR 0.89 04/17/25 08:18
Estimated Creat Clear 60 ml/min 04/18/25 06:30
Total Bilirubin 0.3 mg/dl (0.2-1.3) 04/18/25 06:30
AST 17 U/L (14-36) 04/18/25 06:30
ALT 14 U/L (0-35) 04/18/25 06:30
Alkaline Phosphatase 61 U/L (38-126) 04/18/25 06:30
C-Reactive Protein 64.10 mg/L (0.0-10.00) H 04/15/25 06:31
Most recent labs reviewed.
Micro Results:
04/17/25 13:35 Wound Culture - Preliminary
Bone No growth
Gram Stain - Preliminary
04/15/25 09:38 Blood Culture - Preliminary
Blood/Venous No Growth in 72 hours- Final report to follow
04/15/25 08:45 Blood Culture - Preliminary
Blood/Venous No Growth in 72 hours- Final report to follow
04/16/25 15:15 Blood Culture - Preliminary
Blood/Venous No Growth in 24 hours- Final report to follow
04/16/25 14:29 Blood Culture - Preliminary
Blood/Venous No Growth in 24 hours- Final report to follow
04/14/25 CT a/p: Severe disc space narrowing and osseous irregularity/destructive changes centered at T11-T12. Paravertebral inflammatory soft tissue also noted at T11-T12. CT findings may be secondary to the sequela of a severe neuropathic arthrosis
versus discitis-osteomyelitis. 0.8 cm lytic lesion in the posterior T11 vertebral body of uncertain etiology. No prior imaging of the spine is currently available for direct comparison.
04/16/25 CXR: Pulmonary emphysema. Clear lungs. Exaggerated kyphosis of thoracic spine. Evidence for compression fractures of what likely represent T10 and T11 vertebral bodies. Thoracic spine MRI has been performed the same day and provides more
detailed evaluation.
04/16/25 MRI thoracic spine: At T10-T11 there is discitis/osteomyelitis with associated mild loss of height and increased thoracic kyphosis. There is retropulsion and phlegmonous change in the anterior epidural space with associated high-grade spinal
canal and neuroforaminal narrowing. There is some questionable faint T2 hyperintense cord signal at the T10-T11 level which may represent developing myelopathy. Additionally there is inflammatory changes in the adjacent paraspinal soft tissues.
[2025-04-18 15:22] VITALS: BP 125/71
[2025-04-18] MEDS: VISBIOME 2 CAP PO (17:44)
[2025-04-18] MEDS: ASPIR LOW (ENTERIC COATED) 81 MG PO (17:45)
[2025-04-18] MEDS: CRESTOR 20 MG PO (17:45)
[2025-04-18 23:00] VITALS: BP 143/79
[2025-04-19] MEDS: ANCEF 10 IV ×3 (05:56→22:27)
[2025-04-19 07:34] VITALS: BP 136/75
[2025-04-19] MEDS: HEPARIN 5000 UNITS SC ×3 (07:48→23:49)
[2025-04-19] MEDS: COZAAR 50 MG PO (07:48)
[2025-04-19] MEDS: VISBIOME 2 CAP PO (07:48)
[2025-04-19] MEDS: TYLENOL 650 MG PO ×2 (07:48→17:12)
[2025-04-19] MEDS: TOPROL XL 25 MG PO (07:49)
--- NOTE | 2025-04-19 11:22 | W.PN.ID1 ---
Date of Service
Date of Service: April 19, 2025
Today's Communication
Continue cefazolin.
Assessment / Plan
# T10-T12 discitis/osteomyelitis, phlegmon anterior epidural space
# Elevated ESR/CRP
# Recent history of E. coli bacteremia (S cefazolin, T/sulfa, FQ) 02/01/25 at outside hospital. UA negative.
.02/01/25 CT a/p: no hydronephrosis, few punctate nonobstructing calculi; stable 4.8 cm unilocular cyst right adnexa
. I reviewed [facility]'s records
# Recent history of UTI 01/21/25 at outside hospital.
. UA small LE, 20-29 WBC; Ucx E. coli (pansensitive amox/xlav, cefazolin, nitrofurantoin, T/sulfa). no bcx.
. 01/21/25 CT a/p: no acute pathology
. I reviewed [facility]'s records
- Blood cx's x 2 neg to date (off abx)
- Repeat 2 sets blood cx pending
- 04/17/25 s/p IR biopsy (off abx)
Gram stain mod WBC, no org. CX no growth to date
Path pending
- Clinically responding to cefazolin.
- Continue empiric cefazolin 2g IV q8h.
-Tomorrow place PICC.
- Follow ESR/CRP in am.
Chief Complaint
-: Other (vertebral osteo)
Subjective / Review of Systems
Back pain slightly better.
Vital Signs / Physical Exam
Vital Signs
Vital Signs
Temp Pulse Resp BP Pulse Ox
98.3 F 78 14 136/75 98
04/19/25 07:34 04/19/25 07:48 04/19/25 07:34 04/19/25 07:48 04/19/25 07:34
Physical Exam
Constitutional: No Acute Distress
Cardiovascular: Regular Rate and S1/S2
Pulmonary: Clear
Gastrointestinal: Soft, Non Tender and Non Distended
Extremities: Negative Edema
Musculoskeletal: Spinal Tenderness (Decrease tenderness of lower thorax)
Neurological: AO x 3
Objective Data
Lab Data
Lab Results
04/18/25 06:30
04/18/25 06:30
ESR 81 mm/hour (0-20) H 04/15/25 06:31
PT 12.3 Sec (11.4-14.6) 04/17/25 08:18
INR 0.89 04/17/25 08:18
Estimated Creat Clear 60 ml/min 04/18/25 06:30
Total Bilirubin 0.3 mg/dl (0.2-1.3) 04/18/25 06:30
AST 17 U/L (14-36) 04/18/25 06:30
ALT 14 U/L (0-35) 04/18/25 06:30
Alkaline Phosphatase 61 U/L (38-126) 04/18/25 06:30
C-Reactive Protein 64.10 mg/L (0.0-10.00) H 04/15/25 06:31
Most recent labs reviewed.
Micro Results:
04/15/25 09:38 Blood Culture - Preliminary
Blood/Venous No Growth in 4 days- Final report to follow
04/15/25 08:45 Blood Culture - Preliminary
Blood/Venous No Growth in 4 days- Final report to follow
04/16/25 15:15 Blood Culture - Preliminary
Blood/Venous No Growth in 48 hours- Final report to follow
04/16/25 14:29 Blood Culture - Preliminary
Blood/Venous No Growth in 48 hours- Final report to follow
04/17/25 13:35 Wound Culture - Preliminary
Bone No growth
Gram Stain - Preliminary
04/14/25 CT a/p: Severe disc space narrowing and osseous irregularity/destructive changes centered at T11-T12. Paravertebral inflammatory soft tissue also noted at T11-T12. CT findings may be secondary to the sequela of a severe neuropathic arthrosis
versus discitis-osteomyelitis. 0.8 cm lytic lesion in the posterior T11 vertebral body of uncertain etiology. No prior imaging of the spine is currently available for direct comparison.
04/16/25 CXR: Pulmonary emphysema. Clear lungs. Exaggerated kyphosis of thoracic spine. Evidence for compression fractures of what likely represent T10 and T11 vertebral bodies. Thoracic spine MRI has been performed the same day and provides more
detailed evaluation.
04/16/25 MRI thoracic spine: At T10-T11 there is discitis/osteomyelitis with associated mild loss of height and increased thoracic kyphosis. There is retropulsion and phlegmonous change in the anterior epidural space with associated high-grade spinal
canal and neuroforaminal narrowing. There is some questionable faint T2 hyperintense cord signal at the T10-T11 level which may represent developing myelopathy. Additionally there is inflammatory changes in the adjacent paraspinal soft tissues.
--- NOTE | 2025-04-19 11:48 | W.PN.HOSP.TC ---
Today's Communication/Plan
-
pain improving, no new neurological deficit
cotn Abx as per ID
Assessment / Plan
Assessment / Plan
80yo F with PMHX of HTN, CAD, HLD, nephrolithiasis s/p laser lithotripsy 2 weeks ago, came with c/o continued pain in the middle of her spine started appr 1 month ago. Pain is significant especially when she is trying to get her clothes on. She
initially though that it was 2/2 kidney stone, but her recent lithotripsy did not bring ny relief. CT in ED showed changes in the thoracic spine, MRI proved vertebral OM
Patient with Hx of UTI with E.coli bacteremia (cefalosporin sensitive) in [facility] 1 month ago
A/P:
#Severe disc space narrowing and osseous irregularity/destructive changes centered at T11-T12.
# 0.8 cm lytic lesion in the posterior T11 vertebral body of uncertain etiology.
Paravertebral inflammatory soft tissue also noted at T11-T12. CT findings may be secondary to the sequela of a severe neuropathic arthrosis versus discitis-osteomyelitis. As discussed with NeuroSx - advised Cx and hold off Abx until collected.
MRI thoracic: At T10-T11 there is discitis/osteomyelitis with associated mild loss of height and increased thoracic kyphosis. There is retropulsion and phlegmonous change in the anterior epidural space with associated high-grade spinal canal and
neuroforaminal narrowing. There is some questionable faint T2 hyperintense cord signal at the T10-T11 level which may represent developing myelopathy.
As discussed with neuroSx - patient with high risk for comlicated postOP recovery 2/2 poor nutrition status, lack of subq fat at the site where Sx to be done. Since at this point neuroSx did not see any focal neuro deficit - favoring Abx with
outpatient f/u, weight gain and possible eventual intervention for vertebral stabilization
BcxNTD
[facility] did vertebral biopsy for Cx and lesion under anaesthesia on 04/17/25 - pending
ID consult: started ancef as per previous bacteremia Cx - most liekly episode of UTI with bacteremia caused seeding of infection in the spine
#Weight loss with lack of appetite
since january [address] abd/pelvis without acute findings
will need age-appropriate CA screening by PCP
chest XR normal
No abdominal or retroperitoneal lymphadenopathy.
#4.4 cm simple appearing cystic lesion of the right adnexa.
no follow up advised
#hypokalemia
#hypomagnesemia
Most likely 2/2 poor oral intake
encourage PO intake
replete and follow
#Anemia of chronic disease
follow CBC
#ASCVD
#HLD
#GERD
cont home meds
DVT ppx hep
Full code
I have spent at least 37min reviewing chart, test results, communication with consultants and providing direct patient care
Anticipated Discharge: 24 - 48 hours
Subjective/Interval History
-
Date of Service: April 19, 2025
Objective Data
-
Vital Signs:
Vital Signs
Temp Pulse Resp BP Pulse Ox
98.3 F 78 14 136/75 98
04/19/25 07:34 04/19/25 07:48 04/19/25 07:34 04/19/25 07:48 04/19/25 07:34
I&O
04/18/25 04/19/25 04/20/25
06:59 06:59 06:59
Intake Total 740 / 740 480 / 480
Balance 740 / 740 480 / 480
Review of Systems
-
History Source: Patient
All other systems: Reviewed and negative
Physical Exam
-
General: No Apparent Distress
Respiratory: Clear to Auscultation
Cardiac: Regular Rhythm
Neuro: Awake, Alert, Oriented and AO x 3
Psych: Calm
[2025-04-19] MEDS: FLUSH (NSS) 2 FLUSH IV (13:32)
[2025-04-19 14:56] VITALS: BP 114/67
[2025-04-19] MEDS: SENOKOT-S 1 TABLET PO (15:47)
[2025-04-19] MEDS: CRESTOR 20 MG PO (17:12)
[2025-04-19] MEDS: ASPIR LOW (ENTERIC COATED) 81 MG PO (17:12)
[2025-04-19 23:00] VITALS: BP 117/61
[2025-04-20] MEDS: ANCEF 10 IV ×3 (05:27→23:01)
[2025-04-20 06:33] LABS: % Basophils 0.5 % (0-2); % Eosinophils 2.5 % (0-6); % Immature Granulocytes 0.5 % (0-0.5); % Lymphocytes 43.5 % (20.5-51.1); % Monocytes 7.9 % (1.7-9.3); % Neutrophils 45.1 % (42.2-75.2); Absolute Eosinophils 0.2 10^3/uL (0-0.7); Absolute Lymphocytes 2.6 10^3/uL (1.2-3.4); Absolute Monocytes 0.5 10^3/uL (0.1-0.6); Absolute Neutrophils 2.7 10^3/uL (1.4-6.5); Hematocrit 32.2 % (37.0-47.0); Hemoglobin 9.9 g/dL (12.0-16.0); Mean Corp Hgb Conc. 30.7 g/dL (33.0-37.0); Mean Corpuscular Hgb 25.1 pg (27.0-31.0); Mean Corpuscular Volume 81.7 fL (81.0-99.0); Mean Platelet Volume 9.6 fL (7.4-10.4); Nucleated Red Blood Cells % 0 %; Platelet Count 283 10^3/uL (130-400); Red Blood Cell Count 3.94 10^6/uL (4.20-5.40); Red Cell Dist. Width 17.8 % (11.5-14.5); White Blood Cell Count 6.1 10^3/uL (4.8-10.8)
[2025-04-20 07:16] VITALS: BP 148/84
[2025-04-20 07:31] LABS: C-Reactive Protein < 5.00 mg/L (0.0-10.00)
[2025-04-20 07:43] LABS: Erythrocyte Sed Rate 59 mm/hour (0-20)
[2025-04-20] MEDS: HEPARIN 5000 UNITS SC ×3 (08:00→23:02)
[2025-04-20] MEDS: TOPROL XL 25 MG PO (08:00)
[2025-04-20] MEDS: VISBIOME 2 CAP PO (08:00)
[2025-04-20] MEDS: TYLENOL 650 MG PO ×2 (08:00→18:13)
[2025-04-20] MEDS: COZAAR 50 MG PO (08:00)
--- NOTE | 2025-04-20 10:02 | CM ---
Patient seen at bedside.
PT to eval
Script given to CM for IV Cefazolin 2gm IV Q8h end 05/29/25 - placed on script
Discussed with patient - states has parkinson's & children work
Spoke with Racheal from [facility] - faxed clnicals to run benefit check
PLAN: Await PT eval, will require IV antibiotics
--- NOTE | 2025-04-20 11:38 | W.PN.ID1 ---
Date of Service
Date of Service: April 20, 2025
Today's Communication
- Continue cefazolin 2g IV q8h x 6 weeks through 05/28/25.
- Infusion sheet submitted to Case Management.
- place PICC.
Assessment / Plan
# T10-T12 discitis/osteomyelitis, phlegmon anterior epidural space
# Elevated ESR/CRP
# Recent history of E. coli bacteremia (S cefazolin, T/sulfa, FQ) 02/01/25 at outside hospital. UA negative.
.02/01/25 CT a/p: no hydronephrosis, few punctate nonobstructing calculi; stable 4.8 cm unilocular cyst right adnexa
. I reviewed [facility] records
# Recent history of UTI 01/21/25 at outside hospital.
. UA small LE, 20-29 WBC; Ucx E. coli (pansensitive amox/xlav, cefazolin, nitrofurantoin, T/sulfa). no bcx.
. 01/21/25 CT a/p: no acute pathology
. I reviewed [facility] records
- Blood cx's x 2 neg to date (off abx)
- Repeat 2 sets blood cx neg to date (off abx)
- 04/17/25 s/p IR biopsy (off abx)
Gram stain mod WBC, no org. CX no growth to date
Path pending
- Spine possibly seeding from recent E. coli bacteremia (at [facility])
- Clinically responding to cefazolin.
CRP improved from 62 to <5. ESR 81n to 59.
- Continue cefazolin 2g IV q8h x 6 weeks through 05/28/25.
- Infusion sheet submitted to Case Management.
- place PICC.
Chief Complaint
-: Other (vertebral osteo)
Vital Signs / Physical Exam
Vital Signs
Vital Signs
Temp Pulse Resp BP Pulse Ox
98.2 F 87 18 148/84 99
04/20/25 07:16 04/20/25 07:16 04/20/25 07:16 04/20/25 07:16 04/20/25 07:30
Objective Data
Lab Data
Lab Results
04/20/25 06:22
04/18/25 06:30
ESR 59 mm/hour (0-20) H 04/20/25 06:22
PT 12.3 Sec (11.4-14.6) 04/17/25 08:18
INR 0.89 04/17/25 08:18
Estimated Creat Clear 60 ml/min 04/18/25 06:30
Total Bilirubin 0.3 mg/dl (0.2-1.3) 04/18/25 06:30
AST 17 U/L (14-36) 04/18/25 06:30
ALT 14 U/L (0-35) 04/18/25 06:30
Alkaline Phosphatase 61 U/L (38-126) 04/18/25 06:30
C-Reactive Protein < 5.00 mg/L (0.0-10.00) 04/20/25 06:22
Most recent labs reviewed.
Micro Results:
04/15/25 09:38 Blood Culture - Final
Blood/Venous No Growth - Final Report
04/15/25 08:45 Blood Culture - Final
Blood/Venous No Growth - Final Report
04/16/25 15:15 Blood Culture - Preliminary
Blood/Venous No Growth in 72 hours- Final report to follow
04/16/25 14:29 Blood Culture - Preliminary
Blood/Venous No Growth in 72 hours- Final report to follow
04/17/25 13:35 Wound Culture - Preliminary
Bone No growth
Gram Stain - Preliminary
04/14/25 CT a/p: Severe disc space narrowing and osseous irregularity/destructive changes centered at T11-T12. Paravertebral inflammatory soft tissue also noted at T11-T12. CT findings may be secondary to the sequela of a severe neuropathic arthrosis
versus discitis-osteomyelitis. 0.8 cm lytic lesion in the posterior T11 vertebral body of uncertain etiology. No prior imaging of the spine is currently available for direct comparison.
04/16/25 CXR: Pulmonary emphysema. Clear lungs. Exaggerated kyphosis of thoracic spine. Evidence for compression fractures of what likely represent T10 and T11 vertebral bodies. Thoracic spine MRI has been performed the same day and provides more
detailed evaluation.
04/16/25 MRI thoracic spine: At T10-T11 there is discitis/osteomyelitis with associated mild loss of height and increased thoracic kyphosis. There is retropulsion and phlegmonous change in the anterior epidural space with associated high-grade spinal
canal and neuroforaminal narrowing. There is some questionable faint T2 hyperintense cord signal at the T10-T11 level which may represent developing myelopathy. Additionally there is inflammatory changes in the adjacent paraspinal soft tissues.
--- NOTE | 2025-04-20 12:19 | W.PN.HOSP.TC ---
Today's Communication/Plan
-
picc line
IV abx set up-CM aware and working on it already
Iv cefazolin
Assessment / Plan
Assessment / Plan
80yo F with PMHX of HTN, CAD, HLD, nephrolithiasis s/p laser lithotripsy 2 weeks ago, came with c/o continued pain in the middle of her spine started appr 1 month ago. Pain is significant especially when she is trying to get her clothes on. She
initially though that it was 2/2 kidney stone, but her recent lithotripsy did not bring ny relief. CT in ED showed changes in the thoracic spine, MRI proved vertebral OM
Patient with Hx of UTI with E.coli bacteremia (cefalosporin sensitive) in [facility] 1 month ago
A/P:
#Severe disc space narrowing and osseous irregularity/destructive changes centered at T11-T12.
# 0.8 cm lytic lesion in the posterior T11 vertebral body of uncertain etiology.
Paravertebral inflammatory soft tissue also noted at T11-T12. CT findings may be secondary to the sequela of a severe neuropathic arthrosis versus discitis-osteomyelitis. As discussed with NeuroSx - advised Cx and hold off Abx until collected.
MRI thoracic: At T10-T11 there is discitis/osteomyelitis with associated mild loss of height and increased thoracic kyphosis. There is retropulsion and phlegmonous change in the anterior epidural space with associated high-grade spinal canal and
neuroforaminal narrowing. There is some questionable faint T2 hyperintense cord signal at the T10-T11 level which may represent developing myelopathy.
As discussed with neuroSx - patient with high risk for complicated postOP recovery 2/2 poor nutrition status, lack of subq fat at the site where Sx to be done. Since at this point neuroSx did not see any focal neuro deficit - favoring Abx with
outpatient f/u, weight gain and possible eventual intervention for vertebral stabilization
BcxNTD
[facility] did vertebral biopsy for Cx and lesion under anaesthesia on 04/17/25 - mod wbc, no organisms. No growth so far.
ID consult: started ancef as per previous bacteremia Cx - most likely episode of UTI with bacteremia caused seeding of infection in the spine. CRP downtrended to normal
Per ID, recs IV cefazolin for 6 weeks. PICC line.
#Weight loss with lack of appetite
since january [address] abd/pelvis without acute findings
will need age-appropriate CA screening by PCP
chest XR normal
No abdominal or retroperitoneal lymphadenopathy.
#4.4 cm simple appearing cystic lesion of the right adnexa.
no follow up advised
#hypokalemia
#hypomagnesemia
Most likely 2/2 poor oral intake
encourage PO intake
replete and follow
#Anemia of chronic disease
follow CBC
#ASCVD
#HLD
#GERD
cont home meds
DVT ppx hep
Full code
PT eval
Anticipated Discharge: Within 24 hours
Subjective/Interval History
-
Date of Service: April 20, 2025
wearing the brace
ambulating in hallway w/o any difficulty
Objective Data
-
Labs:
Laboratory Results
04/20/25
06:22
WBC 6.1
Hgb 9.9 L
Hct 32.2 L
Plt Count 283
Vital Signs:
Vital Signs
Temp Pulse Resp BP Pulse Ox
98.2 F 87 18 148/84 99
04/20/25 07:16 04/20/25 07:16 04/20/25 07:16 04/20/25 07:16 04/20/25 07:30
I&O
04/19/25 04/20/25 04/21/25
06:59 06:59 06:59
Intake Total 480 / 480 800 / 800 480 / 480
Balance 480 / 480 800 / 800 480 / 480
Physical Exam
-
General: No Apparent Distress
Respiratory: Clear to Auscultation
Cardiac: Regular Rhythm
GI: Soft, Nontender, Nondistended and Normal Bowel Sounds
Neuro: Awake, Alert, Oriented and AO x 3
Psych: Calm
[2025-04-20 15:10] VITALS: BP 140/84
--- NOTE | 2025-04-20 16:08 | CM ---
Copy of Insurance cards faxed to [facility].
[2025-04-20] MEDS: SENOKOT-S 1 TABLET PO (16:45)
[2025-04-20] MEDS: ASPIR LOW (ENTERIC COATED) 81 MG PO (17:07)
[2025-04-20] MEDS: CRESTOR 20 MG PO (17:07)
[2025-04-20 23:40] VITALS: BP 127/68
[2025-04-21] MEDS: ANCEF 10 IV ×2 (06:05→13:20)
[2025-04-21 06:51] LABS: % Basophils 0.6 % (0-2); % Eosinophils 1.9 % (0-6); % Immature Granulocytes 0.6 % (0-0.5); % Lymphocytes 30.9 % (20.5-51.1); % Monocytes 9.1 % (1.7-9.3); % Neutrophils 56.9 % (42.2-75.2); Absolute Eosinophils 0.1 10^3/uL (0-0.7); Absolute Lymphocytes 1.5 10^3/uL (1.2-3.4); Absolute Monocytes 0.4 10^3/uL (0.1-0.6); Absolute Neutrophils 2.7 10^3/uL (1.4-6.5); Hematocrit 30.6 % (37.0-47.0); Hemoglobin 9.4 g/dL (12.0-16.0); Mean Corp Hgb Conc. 30.7 g/dL (33.0-37.0); Mean Corpuscular Volume 81.4 fL (81.0-99.0); Mean Platelet Volume 9.9 fL (7.4-10.4); Nucleated Red Blood Cells % 0 %; Platelet Count 239 10^3/uL (130-400); Red Blood Cell Count 3.76 10^6/uL (4.20-5.40); Red Cell Dist. Width 18.1 % (11.5-14.5); White Blood Cell Count 4.7 10^3/uL (4.8-10.8)
[2025-04-21 07:08] LABS: ALT (SGPT) 31 U/L (0-35); AST (SGOT) 49 U/L (14-36); Albumin 3.2 g/dl (3.5-5.0); Alkaline Phosphatase 59 U/L (38-126); Blood Urea Nitrogen 12 mg/dl (7-17); Carbon Dioxide 28 mmol/L (22-30); Chloride 107 mmol/L (98-107); Estimated Creatinine Clearance 60 ml/min; Glucose 114 mg/dl (70-99); Potassium 3.6 mmol/L (3.5-5.1); Sodium 139 mmol/L (135-145); Total Bilirubin 0.4 mg/dl (0.2-1.3); Total Protein 5.9 g/dl (6.3-8.2); eGFR > 60.00
[2025-04-21 07:23] VITALS: BP 151/78
[2025-04-21] MEDS: TOPROL XL 25 MG PO (08:30)
[2025-04-21] MEDS: HEPARIN 5000 UNITS SC (08:30)
[2025-04-21] MEDS: VISBIOME 2 CAP PO (08:30)
[2025-04-21] MEDS: COZAAR 50 MG PO (08:30)
[2025-04-21] MEDS: TYLENOL 650 MG PO (09:01)
--- NOTE | 2025-04-21 10:24 | CM ---
Addendum entered by Viki Haines 04/21/25 15:00:
IMM completed.
Daughter will transport.
Teaching completed.
[facility] to see patient in am, daughter to give PM dose tonight.
Daughter asked again about going to a skilled facility, explained PT recommending skilled vs home PT, ambulated in PT 140 ft x 2 with no device and supervision. CM explained we could look for a facility for IV anbx and therapy and CM would send out
referrals if that is what she chooses. Daughter stated no, she wants to take her home. CM offered if she changes her mind to let nursing know and they will contact CM and MD.
Original Note:
Patient seen bedside.
Patient unsure she will be able to self administer medications.
Patient unsure if she wants to go to skilled rehab and requested this CM call her daughter Maria Antonia.
TC to [facility], she would prefer home with IV anbx.
Per Maria Antonia she and her brother will assist with medications if needed.
Maria Antonia is willing to come in today to learn IV anbx with patient at 1 pm.
Spoke with Racheal from [facility] she will do teaching at 1 pm.
If all goes well with teaching, supplies will be delivered this evening and family will administer PM dose.
TC to [facility] and verified availability to start tomorrow am.
Faxed PICC line information and script to [facility] and PICC line infor to [facility].
Plan: Home with IV anbx and [facility]

[facility]
--- NOTE | 2025-04-21 12:54 | W.PN.ID1 ---
Date of Service
Date of Service: April 21, 2025
Today's Communication
DC home when outpt IV abx set up.
Assessment / Plan
# T10-T12 discitis/osteomyelitis, phlegmon anterior epidural space
# Elevated ESR/CRP
# Recent history of E. coli bacteremia (S cefazolin, T/sulfa, FQ) 02/01/25 at outside hospital. UA negative.
.02/01/25 CT a/p: no hydronephrosis, few punctate nonobstructing calculi; stable 4.8 cm unilocular cyst right adnexa
. I reviewed [facility] records
# Recent history of UTI 01/21/25 at outside hospital.
. UA small LE, 20-29 WBC; Ucx E. coli (pansensitive amox/xlav, cefazolin, nitrofurantoin, T/sulfa). no bcx.
. 01/21/25 CT a/p: no acute pathology
. I reviewed [facility]'s records
- Blood cx's x 2 neg (off abx)
- Repeat 2 sets blood cx neg (off abx)
- 04/17/25 s/p IR biopsy (off abx)
Gram stain mod WBC, no org. CX no growth
Path pending
- Spine possibly seeding from recent E. coli bacteremia (at [facility])
- Clinically responding to cefazolin.
CRP improved from 62 to <5. ESR 81n to 59.
- Continue cefazolin 2g IV q8h x 6 weeks through 05/28/25.
- Infusion sheet submitted to Case Management.
- DC home when home IV set up.
- Follow-up with me in 3-4 weeks.
Updated daughter on phone.
Chief Complaint
-: Other (vertebral osteo)
Subjective / Review of Systems
Appetite better.
Vital Signs / Physical Exam
Vital Signs
Vital Signs
Temp Pulse Resp BP Pulse Ox
98.2 F 91 17 151/78 99
04/21/25 07:23 04/21/25 07:23 04/21/25 07:23 04/21/25 07:23 04/21/25 07:23
Physical Exam
Constitutional: No Acute Distress and Comfortable
Cardiovascular: Regular Rate and S1/S2
Pulmonary: Clear
Gastrointestinal: Soft, Non Tender, Non Distended and Normal Bowel Sounds
Musculoskeletal: Negative Spinal Tenderness
Neurological: AO x 3
Lines: PICC
Objective Data
Lab Data
Lab Results
04/21/25 06:13
04/21/25 06:13
ESR 59 mm/hour (0-20) H 04/20/25 06:22
PT 12.3 Sec (11.4-14.6) 04/17/25 08:18
INR 0.89 04/17/25 08:18
Estimated Creat Clear 60 ml/min 04/21/25 06:13
Total Bilirubin 0.4 mg/dl (0.2-1.3) 04/21/25 06:13
AST 49 U/L (14-36) H 04/21/25 06:13
ALT 31 U/L (0-35) 04/21/25 06:13
Alkaline Phosphatase 59 U/L (38-126) 04/21/25 06:13
C-Reactive Protein < 5.00 mg/L (0.0-10.00) 04/20/25 06:22
Most recent labs reviewed.
Micro Results:
04/16/25 15:15 Blood Culture - Preliminary
Blood/Venous No Growth in 4 days- Final report to follow
04/16/25 14:29 Blood Culture - Preliminary
Blood/Venous No Growth in 4 days- Final report to follow
04/17/25 13:35 Wound Culture - Final
Bone No growth
Gram Stain - Final
04/15/25 09:38 Blood Culture - Final
Blood/Venous No Growth - Final Report
04/15/25 08:45 Blood Culture - Final
Blood/Venous No Growth - Final Report
04/14/25 CT a/p: Severe disc space narrowing and osseous irregularity/destructive changes centered at T11-T12. Paravertebral inflammatory soft tissue also noted at T11-T12. CT findings may be secondary to the sequela of a severe neuropathic arthrosis
versus discitis-osteomyelitis. 0.8 cm lytic lesion in the posterior T11 vertebral body of uncertain etiology. No prior imaging of the spine is currently available for direct comparison.
04/16/25 CXR: Pulmonary emphysema. Clear lungs. Exaggerated kyphosis of thoracic spine. Evidence for compression fractures of what likely represent T10 and T11 vertebral bodies. Thoracic spine MRI has been performed the same day and provides more
detailed evaluation.
04/16/25 MRI thoracic spine: At T10-T11 there is discitis/osteomyelitis with associated mild loss of height and increased thoracic kyphosis. There is retropulsion and phlegmonous change in the anterior epidural space with associated high-grade spinal
canal and neuroforaminal narrowing. There is some questionable faint T2 hyperintense cord signal at the T10-T11 level which may represent developing myelopathy. Additionally there is inflammatory changes in the adjacent paraspinal soft tissues.
--- NOTE | 2025-04-21 13:32 | W.PN.HOSP.TC ---
Today's Communication/Plan
-
Coordination of IV antibiotics teaching with patient and family
PICC line placed
Medically stable for discharge
Assessment / Plan
Assessment / Plan
80yo F with PMHX of HTN, CAD, HLD, nephrolithiasis s/p laser lithotripsy 2 weeks ago, came with c/o continued pain in the middle of her spine started appr 1 month ago. Pain is significant especially when she is trying to get her clothes on. She
initially though that it was 2/2 kidney stone, but her recent lithotripsy did not bring ny relief. CT in ED showed changes in the thoracic spine, MRI proved vertebral OM
Patient with Hx of UTI with E.coli bacteremia (cefalosporin sensitive) in [facility] 1 month ago
A/P:
#Severe disc space narrowing and osseous irregularity/destructive changes centered at T11-T12.
# 0.8 cm lytic lesion in the posterior T11 vertebral body of uncertain etiology.
Paravertebral inflammatory soft tissue also noted at T11-T12. CT findings may be secondary to the sequela of a severe neuropathic arthrosis versus discitis-osteomyelitis. As discussed with NeuroSx - advised Cx and hold off Abx until collected.
MRI thoracic: At T10-T11 there is discitis/osteomyelitis with associated mild loss of height and increased thoracic kyphosis. There is retropulsion and phlegmonous change in the anterior epidural space with associated high-grade spinal canal and
neuroforaminal narrowing. There is some questionable faint T2 hyperintense cord signal at the T10-T11 level which may represent developing myelopathy.
As discussed with neuroSx - patient with high risk for complicated postOP recovery 2/2 poor nutrition status, lack of subq fat at the site where Sx to be done. Since at this point neuroSx did not see any focal neuro deficit - favoring Abx with
outpatient f/u, weight gain and possible eventual intervention for vertebral stabilization
BcxNTD
[facility] did vertebral biopsy for Cx and lesion under anaesthesia on 04/17/25 - mod wbc, no organisms. No growth so far. Path still pending.
ID consult: started ancef as per previous bacteremia Cx - most likely episode of UTI with bacteremia caused seeding of infection in the spine. CRP downtrended to normal
Per ID, recs IV cefazolin for 6 weeks. PICC line.
#Weight loss with lack of appetite
since january [address] abd/pelvis without acute findings
will need age-appropriate CA screening by PCP
chest XR normal
No abdominal or retroperitoneal lymphadenopathy.
#4.4 cm simple appearing cystic lesion of the right adnexa.
Can follow-up with primary doctor.
#hypokalemia
#hypomagnesemia
Most likely 2/2 poor oral intake
encourage PO intake
replete and follow
#Anemia of chronic disease
follow CBC
#ASCVD
#HLD
#GERD
cont home meds
DVT ppx hep
Full code
PT eval SNF versus home care
Discussed with patient daughter over the phone in detail. Daughter would like to take patient home and will assist with IV antibiotics.
Anticipated Discharge: Today
Subjective/Interval History
-
Date of Service: April 21, 2025
States some mild back pain
Remains afebrile
Objective Data
-
Labs:
Laboratory Results
04/21/25
06:13
WBC 4.7 L
Hgb 9.4 L
Hct 30.6 L
Plt Count 239
Sodium 139
Potassium 3.6
Chloride 107
Carbon Dioxide 28
BUN 12
Creatinine 0.4 L
Glucose 114 H
Calcium 9.0
Total Bilirubin 0.4
AST 49 H
ALT 31
Alkaline Phosphatase 59
Vital Signs:
Vital Signs
Temp Pulse Resp BP Pulse Ox
98.2 F 91 17 151/78 99
04/21/25 07:23 04/21/25 07:23 04/21/25 07:23 04/21/25 07:23 04/21/25 07:23
I&O
04/20/25 04/21/25 04/22/25
06:59 06:59 06:59
Intake Total 800 / 800 1440 / 1440
Balance 800 / 800 1440 / 1440
Physical Exam
-
General: No Apparent Distress
HEENT: Normocephalic
Respiratory: Clear to Auscultation
Cardiac: Regular Rhythm
Breast: Deferred by me
GI: Soft, Nontender, Nondistended and Normal Bowel Sounds
Musculoskeletal: No Edema
Skin: Warm
Neuro: Awake, Alert, Oriented and AO x 3
Psych: Calm
--- NOTE | 2025-04-21 14:29 | W.DCSUMMARY ---
Discharge Summary
Discharge Data
Date of Admission: 04/16/25
Date of Discharge: 04/21/25
-
Pending Results: Yes
Additional Pending Results:
Bone biopsy pathology with primary doctor or infectious disease
Hospital Course
80yo F with PMHX of HTN, CAD, HLD, nephrolithiasis s/p laser lithotripsy 2 weeks ago, came with c/o continued pain in the middle of her spine started appr 1 month ago. Pain is significant especially when she is trying to get her clothes on. She
initially though that it was 2/2 kidney stone, but her recent lithotripsy did not bring ny relief. CT in ED showed changes in the thoracic spine, MRI proved vertebral OM. Patient with Hx of UTI with E.coli bacteremia (cefalosporin sensitive) in
[facility] 1 month ago .MRI thoracic: At T10-T11 there is discitis/osteomyelitis with associated mild loss of height and increased thoracic kyphosis. There is retropulsion and phlegmonous change in the anterior epidural space with associated
high-grade spinal canal and neuroforaminal narrowing. There is some questionable faint T2 hyperintense cord signal at the T10-T11 level which may represent developing myelopathy. discussed with neuroSx - patient with high risk for complicated postOP
recovery 2/2 poor nutrition status, lack of subq fat at the site where Sx to be done. Since at this point neuroSx did not see any focal neuro deficit - favoring Abx with outpatient f/u, weight gain and possible eventual intervention for vertebral
stabilization. [facility] did vertebral biopsy for Cx and lesion under anaesthesia on 04/17/25 - mod wbc, no organisms. No growth so far. Path still pending. ID consult: started ancef as per previous bacteremia Cx - most likely episode of UTI with
bacteremia caused seeding of infection in the spine. CRP downtrended to normal. PICC line was placed plan for 6 weeks of antibiotics. Patient will follow outpatient with infectious disease and neurosurgery.
Discharge Plan
-
Patient Disposition: Home with Home Care
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
Condition: Fair
Diet: Regular
Activity: As tolerated
Driving Restrictions: Not until seen by your Dr
Blood Work: Recommend blood work of ESR/CRP in 4 weeka via primary doctor
Others Tests: MRI thoracic with and without contrast via primary doctor or neurosurgery
Activity Restrictions/Additional Instructions:
Follow-up final pathology results of biopsy
Referrals:
Harinder Kee MD [Family Provider, Internal Medicine] - in less than 1 week
Crista Abdi MD [Active, Neurosurgery] - in one month
Referral Note: Call the office to make appointment
Recommend blood work of ESR/CRP and, MRI thoracic with and without contrast primary doctor.
Sandra Morris MD [Active, Infectious Diseases]
Referral Note: Call office for appointment in 3 to 4 weeks.
Follow-up with the biopsy pathology results in office
Prescriptions:
New
cefazolin 10 gram Recon Soln
2 g IV Q8H 38 Days Qty: 114 0RF
Rx Instructions:
Continue cefazolin 2g IV q8h x 6 weeks through 05/28/25.
Probiotic 3 billion cell capsule
3,000 mmu cells PO DAILY Qty: 40 0RF
Continued
losartan 50 mg Tablet
50 mg PO DAILY
metoprolol succinate [Toprol XL] 25 mg Tablet Extended Release 24 Hr
25 mg PO DAILY
rosuvastatin [Crestor] 20 mg Tablet
20 mg PO QPM
acetaminophen [Tylenol] 325 mg Tablet
650 mg PO Q6HPRN PRN (Reason: mild pain)
aspirin 81 mg Tablet,Delayed Release (Dr/Ec)
81 mg PO QPM
Discharge Orders:
Discharge Patient (As Directed); Ordered 04/21/25
Ordered By: Jet Mccall
Discharge Date and Time
Print Language: [place] IRISH
[2025-04-21 15:07] VITALS: BP 137/83
[2025-04-21] MEDS: HEPARIN SC (16:48)
== END 2025-04-21 18:19 | disposition home health service (06) | DRG 477 ==
LOC: 3 WEST ACU 07:16
PROVIDERS: Emergency Medicine; Internal Medicine; Radiology Vascular & Interventional Radiology; ADMITTING PHYSICIAN Internal Medicine; ATTENDING PHYSICIAN Hospitalist; CONSULT PHYSICIAN Internal Medicine Infectious Disease; CONSULT PHYSICIAN Neurological Surgery; EMERGENCY PHYSICIAN Emergency Medicine; FAMILY PHYSICIAN Internal Medicine
PROC: 0QB03ZX Excision of Lumbar Vertebra, Percutaneous Approach, Diagnostic (ICD-10-PCS; 2025-04-17)
DX: M46.24 Osteomyelitis of vertebra, thoracic region (principal); G06.2 Extradural and subdural abscess, unspecified; E44.0 Moderate protein-calorie malnutrition; Z68.1 Body mass index [BMI] 19.9 or less, adult; R62.7 Adult failure to thrive; R63.0 Anorexia; I25.10 Atherosclerotic heart disease of native coronary artery without angina pectoris; E87.6 Hypokalemia; E83.42 Hypomagnesemia; E78.00 Pure hypercholesterolemia, unspecified; K21.9 Gastro-esophageal reflux disease without esophagitis; N18.9 Chronic kidney disease, unspecified; D63.1 Anemia in chronic kidney disease; M46.44 Discitis, unspecified, thoracic region
CPT/HCPCS: 88307; 20225; 71045; 71046; 72157; 74177; 77002; 80048; 80053; 81003; 81015; 82607; 82728; 83540; 83550; 83690; 83735; 84443; 85025; 85610; 85652; 86140; 87040; 87070; 87205; 88342; 96361; 96374; 96375; 97162; 99284; A9575; Q9967